=== PATIENT | female | born 1950 | race Caucasian/White ===

== ENCOUNTER 2018-03-20 09:36 | Day surgery (SDC) | payer OTHER, SELFPAY ==
--- NOTE | 2018-03-20 | PATH_ITS ---
[facility] Accession Number: [id number] . 01 Material submitted: . PART A: POLYP AT 55 PART B: POLYP AT 50 PART C: POLYP AT 40 . 02 Diagnosis: A. Colon, Polyp at 55 cm, Biopsy: Tubular adenoma. . B. Colon, Polyp at 50 cm, Biopsy: Tubular adenoma. . C. Colon, Polyp at 40 cm, Biopsy: Tubular adenoma. MRV/03/21/2018 . 02 Electronically signed: . Barbara Ingram MD, Pathologist NPI- [id number] . 01 Gross description: . Received three formalin-filled containers, each labeled with the patient's name: . A. In a container labeled polyp at 55, the specimen consists of a 0.3 cm portion of tissue, entirely submitted in cassette A. B. In a container labeled polyp at 50, the specimen consists of a 0.3 cm portion of tissue, entirely submitted in cassette B. C. In a container labeled polyp at 40, the specimen consists of two 0.3-0.5 cm portions of tissue, entirely submitted in cassette C. ([id number]) /FRR . 02 Pathologist provided ICD-10: D12.6 . 02 CPT . 523513, [id number], [id number] Performed at: 01 [facility] [address] [facility], [place], [place] [id number] MD Romeo Ferrer MD Phone: [phone] Performed at: 02 [facility] [address] [place], [place] [id number] MD David Barrera MD Phone: [phone]
--- NOTE | 2018-03-20 07:47 | SUR.PREOP ---
CHARTED ON WRONG PT,
[2018-03-20 10:20] VITALS: BP 122/67; PULSE 63; RESP 18; TEMP 36.7; O2SAT 100
[2018-03-20] MEDS: SODIUM CHLORIDE 0.9% 1,000 ML 200 ML IV (10:20)
--- NOTE | 2018-03-20 11:46 | PM.HP.1 ---
History of Present Illness Date Patient Seen: 03/20/18 Time Patient Seen: 11:46 Chief complaint: [id number] Narrative: Domonique is a generally healthy 67-year-old lady with a personal history of rectal cancer. Additionally she has had multiple polyps in the past. Her last colonoscopy was 3 years ago and at that time she had 6 polyps removed. She reports that she is feeling well and denies any new symptoms or problems related to the function of her GI tract. Patient History Surgical History History of breast augmentation Status post tubal ligation Family & Social History Family History: Reviewed 03/20/18 by Sophie Tracey MD Social History: household members none Meds Home Medications Medication Instructions Recorded Confirmed Type Fexofenadine Hydrochloride 60 mg PO PRN #0 03/16/11 03/20/18 History (#MARY KATE) lorazepam 0 mg PO BIDP PRN #45 tab 06/18/16 03/20/18 Rx metoprolol tartrate 25 mg PO Q DAY #90 tab 06/27/17 03/20/18 Rx levothyroxine [Synthroid] 88 mcg PO QAM #90 tab 08/07/17 03/20/18 Rx Allergies Allergy/AdvReac Type Severity Reaction Status Date / Time Sulfa (Sulfonamide Allergy Mild RASH Unverified 03/20/18 10:29 Antibiotics) [SULFA (SULFONAMIDE ANTIBIOTICS)] Review of Systems Review of Systems All systems reviewed & are unremarkable except as noted in HPI and below Exam Vital Signs (past 8 hours): - 03/20/18 10:20 Temperature 98.1 F Pulse Rate 63 Respiratory Rate 18 Blood Pressure 122/67 H Pulse Oximetry 100 Oxygen Delivery Method Room Air Narrative Exam Narrative: Very pleasant well-nourished well-developed lady. She is thin and in no distress HEENT: Normocephalic and atraumatic, pupils equal round reactive to light accommodation with anicteric sclera Lungs: Clear to auscultation bilaterally Heart: Regular rate and rhythm Abdomen: Soft, nontender, active bowel sounds Extremities: Warm and well perfused Assessment & Plan Plan: Assessment/Plan Narrative: Very pleasant 67-year-old lady with personal history of rectal cancer and multiple polyps in the past. We discussed the risks and benefits of the procedure the patient expressed a desire to complete it today.
--- NOTE | 2018-03-20 12:20 | PM.OP.1 ---
Operative Date/Time/Diagnoses Date of procedure: 03/20/18 Time of procedure: 12:21 Pre-op diagnosis: Personal history of rectal cancer and multiple polyps Post-op diagnosis: same Procedure & Clinicians Procedure: Colonoscopy to the cecum with polypectomy x3 Same procedure as scheduled: Yes Indications: Last colonoscopy 2014 Surgeon: Sophie Tracey Anesthesia Type: Sedation (Versed 5 mg; fentanyl 50 mcg) Operative Notes Findings: 1. Adequate prep 2. Three 2-3 mm sessile polyps at 55 cm, 50 cm, and 40 cm. All removed with cold forceps and submitted for pathology 3. Otherwise normal mucosa with minimal diverticulosis 4. Very mild perianal irritation without gross proctitis. 5. Anastomosis identified and without evidence of recurrence Closure Type: not applicable Specimen(s): other (Three 2-3 mm sessile polyps) Estimated Blood Loss (mL): 1 Procedure in detail: After obtaining informed consent, the patient was brought to the GI suite and placed in the left lateral decubitus position on the examination table. After placement of appropriate monitors, the patient was given incremental doses of Versed and Fentanyl until an appropriate level of sedation was achieved. A time out was held per SCOAP protocol. A digital rectal examination was performed and did not reveal any masses or obstructing lesions. The colonoscope was gently passed into the patient's anus and the entire colon navigated to the level of the cecum with minimal difficulty. Once in the cecum, the scope was withdrawn being sure to go before and beyond all mucosal folds and prominences and get an excellent examination. The findings are noted above. At the level of the rectal vault, the scope was retroflexed and the internal anal canal was examined. The scope was straightened and air aspirated from the colon. The instrument was removed from the patient's body and the procedure was concluded. The patient was allowed to awaken from sedation without difficulty and taken to the post-anesthesia care unit in good condition. Total sedation time 22 min Total withdrawal time 14 min 45 sec at Complications: none Condition: stable Disposition: PACU Plan for aftercare: 1. Discharge to home 2. Plan for next colonoscopy in 3 years or as clinically indicated
[2018-03-20 12:27] VITALS: BP 97/55; PULSE 60; RESP 16; TEMP 36.9; O2SAT 96
[2018-03-20] MEDS: fentaNYL 250 MCG/5 ML INJ IV (12:28)
[2018-03-20] MEDS: MIDAZOLAM 5 MG/5 ML VIAL IV (12:29)
[2018-03-20 12:32] VITALS: BP 93/53; PULSE 60; RESP 18; O2SAT 95
[2018-03-20 12:37] VITALS: BP 89/51; PULSE 60; RESP 16; O2SAT 99
[2018-03-20 12:43] VITALS: BP 97/61; PULSE 60; RESP 16; TEMP 37.1; O2SAT 98
[2018-03-20 13:32] VITALS: BP 105/56; PULSE 69; RESP 16; TEMP 36.1; O2SAT 100
== END 2018-03-20 13:40 | disposition home or self-care (01) ==
PROVIDERS: Family Provider Family Medicine; PCP Family Medicine; Visit Provider Surgery
PROC: 0DJD8ZZ Inspection of Lower Intestinal Tract, Via Natural or Artificial Opening Endoscopic (ICD-10-PCS; CPT 45378; principal; 2018-03-20 10:45)
DX: Z85.048 Personal history of other malignant neoplasm of rectum, rectosigmoid junction, and anus (principal); Z86.010 Personal history of colon polyps; D12.6 Benign neoplasm of colon, unspecified
CPT/HCPCS: 45380; 99152; J2250; J3010

== ENCOUNTER → 2018-10-22 09:47 | Outpatient (CLI) | payer OTHER, SELFPAY ==
[2018-10-22 10:11] LABS: Add Manual Diff / Slide Review NO; Basophils Absolute Auto 100 /uL (0-100); Basophils Percent Auto 0.8 % (0-2); Eosinophils Absolute Auto 100 /uL (0-450); Eosinophils Percent Auto 0.9 % (2-4); Hematocrit 43.8 % (36-46); Hemoglobin 14.5 g/dL (12.0-16.0); Lymphocytes Absolute Auto 1700 /uL (1100-4500); Mean Corpuscular Hemoglobin 32.8 PG (26-34); Mean Corpuscular Volume 99.4 fL (80-100); Monocytes Absolute Auto 500 /uL (0-900); Monocytes Percent Auto 7.3 % (3-14); Neutrophils Absolute Auto 5000 /uL (1500-7000); Platelet Count 328 X10^3/uL (150-400); Red Blood Cell Count 4.41 X10^6/uL (4.0-5.2); Red Cell Distribution Width 14.6 % (11.6-14.8); White Blood Cell Count 7.3 X10^3/uL (4.5-11.0)
[2018-10-22 10:22] LABS: Alanine Aminotransferase 47 IU/L (9-52); Albumin 4.8 g/dL (3.5-5.0); Albumin Globulin Ratio 1.5 (1.0-2.8); Alkaline Phosphatase 79 U/L (38-126); Aspartate Aminotransferase 48 IU/L (14-36); BUN Creatinine Ratio 22.9 (6-22); Bilirubin Total 0.6 mg/dL (0.2-1.3); Blood Urea Nitrogen 16 mg/dL (7-17); Calcium 10.4 mg/dL (8.4-10.2); Carbon Dioxide 29 mmol/L (22-32); Chloride 99 mmol/L (98-107); Cholesterol 250 mg/dL (140-199); Estimated Glomerular Filt Rate > 60.0 mL/min (>60); Globulin 3.3 g/dL (1.7-4.1); Glucose 112 mg/dL (80-110); HDL Cholesterol 89 mg/dL (40-60); HEMOLYSIS < 15 (0-50); LDL Cholesterol Calculated 137 mg/dL (<100); Potassium 4.5 mmol/L (3.4-5.1); Sodium 139 mmol/L (137-145); Total Protein 8.1 g/dL (6.3-8.2); Triglycerides 119 mg/dL (35-150)
[2018-10-22 10:51] LABS: Vitamin D 25 Hydroxy (D3) 37.3 ng/mL (30.0-100.0)
[2018-10-22 11:09] LABS: Thyroid Stimulating Hormone 0.82 uIU/mL (0.47-4.68)
== END ==
PROVIDERS: PCP Family Medicine; Visit Provider Family Medicine
DX: E03.9 Hypothyroidism, unspecified (principal); E78.5 Hyperlipidemia, unspecified; I10 Essential (primary) hypertension; M81.0 Age-related osteoporosis without current pathological fracture; R73.09 Other abnormal glucose
CPT/HCPCS: 36415; 80053; 80061; 82306; 84443; 85025

== ENCOUNTER → 2018-12-05 09:28 | Outpatient (CLI) | payer OTHER, SELFPAY | PROVIDERS: PCP Family Medicine; Visit Provider Family Medicine | DX: M81.0 Age-related osteoporosis without current pathological fracture (principal); Z78.0 Asymptomatic menopausal state; F17.200 Nicotine dependence, unspecified, uncomplicated; Z82.62 Family history of osteoporosis | CPT/HCPCS: 77080 ==

== ENCOUNTER → 2019-08-17 08:57 | Outpatient (CLI) | payer OTHER, SELFPAY ==
[2019-08-17 10:30] LABS: Add Manual Diff / Slide Review NO; Basophils Absolute Auto 0 /uL (0-100); Basophils Percent Auto 0.3 % (0-2); Eosinophils Absolute Auto 100 /uL (0-450); Eosinophils Percent Auto 0.9 % (2-4); Hematocrit 43.4 % (36-46); Hemoglobin 14.7 g/dL (12.0-16.0); Lymphocytes Absolute Auto 1100 /uL (1100-4500); Lymphocytes Percent Auto 17.1 % (25-40); Mean Corpuscular Hemoglobin 33.9 PG (26-34); Mean Corpuscular Volume 99.7 fL (80-100); Monocytes Absolute Auto 600 /uL (0-900); Monocytes Percent Auto 8.5 % (3-14); Neutrophils Absolute Auto 4900 /uL (1500-7000); Neutrophils Percent Auto 73.2 % (50-75); Platelet Count 304 X10^3/uL (150-400); Red Blood Cell Count 4.35 X10^6/uL (4.0-5.2); Red Cell Distribution Width 14.3 % (11.6-14.8); White Blood Cell Count 6.7 X10^3/uL (4.5-11.0)
[2019-08-17 10:49] LABS: BUN Creatinine Ratio 16.7 (6-22); Blood Urea Nitrogen 10 mg/dL (7-17); Calcium 10.3 mg/dL (8.4-10.2); Carbon Dioxide 30 mmol/L (22-32); Chloride 99 mmol/L (98-107); Cholesterol 202 mg/dL (140-199); Estimated Glomerular Filt Rate > 60.0 mL/min (>60); Glucose 108 mg/dL (80-110); HDL Cholesterol 67 mg/dL (40-60); HEMOLYSIS < 15 (0-50); LDL Cholesterol Calculated 119 mg/dL (<100); Potassium 4.2 mmol/L (3.4-5.1); Sodium 138 mmol/L (137-145); Triglycerides 79 mg/dL (35-150)
[2019-08-17 11:08] LABS: Thyroid Stimulating Hormone 0.88 uIU/mL (0.47-4.68)
== END ==
PROVIDERS: PCP Family Medicine; Visit Provider Family Medicine
DX: I10 Essential (primary) hypertension (principal)
CPT/HCPCS: 36415; 80048; 80061; 84443; 85025

== ENCOUNTER → 2020-04-18 09:50 | Outpatient (CLI) | payer MEDICARE, SELFPAY ==
[2020-04-18 11:20] LABS: Cholesterol 230 mg/dL (140-199); HDL Cholesterol 77 mg/dL (40-60); LDL Cholesterol Calculated 124 mg/dL (<100); Triglycerides 144 mg/dL (35-150)
[2020-04-18 11:49] LABS: Thyroid Stimulating Hormone 0.747 uIU/mL (0.47-4.68)
== END ==
PROVIDERS: PCP Family Medicine; Referring Provider Family Medicine; Visit Provider Family Medicine
DX: I10 Essential (primary) hypertension (principal); Z13.220 Encounter for screening for lipoid disorders; Z13.29 Encounter for screening for other suspected endocrine disorder; Z13.6 Encounter for screening for cardiovascular disorders
CPT/HCPCS: 36415; 80061; 84443

== ENCOUNTER → 2020-09-01 10:14 | Outpatient (CLI) | payer MEDICARE, SELFPAY ==
[2020-09-01 12:35] LABS: Cholesterol 201 mg/dL (140-199); HDL Cholesterol 65 mg/dL (40-60); LDL Cholesterol Calculated 113 mg/dL (<100); Triglycerides 114 mg/dL (35-150)
== END ==
PROVIDERS: PCP Family Medicine; Referring Provider Family Medicine; Visit Provider Family Medicine
DX: E78.2 Mixed hyperlipidemia (principal)
CPT/HCPCS: 36415; 80061

== ENCOUNTER → 2020-09-09 14:03 | Outpatient (CLI) | payer MEDICARE, SELFPAY ==
--- NOTE | 2020-09-09 14:07 | DI.RAD.S_ITS ---
PROCEDURE: XR SACRUM COCCYX MIN 2V INDICATIONS: lower back pain TECHNIQUE: 3 views of the sacrum and coccyx acquired. COMPARISON: [facility], MR, PELVIS WITHOUT CONTRAST, 12/04/2017, 14:15. [facility], CR, XR LUMBAR SPINE 2-3V, 09/09/2020, 14:12. [facility], CR, SACRUM-COCCYX MIN 2 VIEWS, 11/20/2017, 11:48. FINDINGS: Bones: No fractures or dislocations. No new suspicious bony lesions. The pattern of patchy sclerotic change along the sacroiliac joints bilaterally appears stable from 11/20/17 plain films and subsequent MR scanning through the pelvis. Soft tissues: Visualized bowel gas pattern is normal. No suspicious soft tissue densities. IMPRESSION: Itqk-vf-hlrxccpi patchy bilateral sclerotic change along the sacroiliac joints bilaterally, greater along the sacral margins than the iliac bone margins. This pattern has been previously present without change management specialist time from at least 11/20/17. No trauma found. Dictated by: Adrian Downey M.D. on 09/09/2020 at 15:45 Approved by: Adrian Downey M.D. on 09/09/2020 at 15:51
--- NOTE | 2020-09-09 14:07 | DI.RAD.S_ITS ---
PROCEDURE: XR LUMBAR SPINE 2-3V INDICATIONS: lower back pain TECHNIQUE: 3 views of the lumbar spine were acquired. COMPARISON: [facility], , L-SPINE 2-3 VIEWS, 11/20/2017, 11:47. FINDINGS: Bones: 5 cxd-kot-xxeinga vertebrae are present. There is normal bony alignment. No vertebral body compression fractures. No suspicious bony lesions. As previously noted patchy sclerotic regions along the border of the sacroiliac joints, symmetric bilaterally, are again seen and stable from at least 11/20/17. No new areas of sclerosis have developed. A Schmorl's node superior middle 3rd of the L4 vertebral body is stable over time. Soft tissues: Overlying bowel gas pattern is normal. No suspicious soft tissue calcifications. 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 Mild chronic sclerotic change along the sacroiliac joints consistent with quiescent sacroiliitis. Dictated by: Adrian Downey M.D. on 09/09/2020 at 15:51 Approved by: Adrian Downey M.D. on 09/09/2020 at 15:53
== END ==
PROVIDERS: PCP Family Medicine; Referring Provider Registered Nurse; Visit Provider Registered Nurse
DX: M54.5 Low back pain (principal)
CPT/HCPCS: 72100; 72220

== ENCOUNTER → 2020-11-17 15:34 | Outpatient (CLI) | payer MEDICARE, SELFPAY ==
[2020-11-17 16:06] LABS: Add Manual Diff / Slide Review NO; Basophils Absolute Auto 100 /uL (0-100); Basophils Percent Auto 0.8 % (0-2); Eosinophils Absolute Auto 100 /uL (0-450); Eosinophils Percent Auto 1.3 % (2-4); Hematocrit 39.5 % (36-46); Hemoglobin 13.5 g/dL (12.0-16.0); Lymphocytes Absolute Auto 1600 /uL (1100-4500); Lymphocytes Percent Auto 20.1 % (25-40); Mean Corpuscular HGB Conc 34.2 % (30-36); Mean Corpuscular Hemoglobin 33.8 PG (26-34); Mean Corpuscular Volume 98.6 fL (80-100); Monocytes Absolute Auto 500 /uL (0-900); Monocytes Percent Auto 6.7 % (3-14); Neutrophils Absolute Auto 5700 /uL (1500-7000); Neutrophils Percent Auto 71.1 % (50-75); Platelet Count 240 X10^3/uL (150-400); Red Blood Cell Count 4.01 X10^6/uL (4.0-5.2); Red Cell Distribution Width 14.3 % (11.6-14.8); White Blood Cell Count 8.1 X10^3/uL (4.5-11.0)
[2020-11-17 16:39] LABS: Alanine Aminotransferase 61 IU/L (<35); Albumin Globulin Ratio 1.6 (1.0-2.8); Alkaline Phosphatase 82 U/L (38-126); Aspartate Aminotransferase 74 IU/L (14-36); BUN Creatinine Ratio 43.9 (6-22); Bilirubin Total 0.3 mg/dL (0.2-1.3); Blood Urea Nitrogen 25 mg/dL (7-17); C-Reactive Protein Quant < 0.5 mg/dL (<1.0); Calcium 10.4 mg/dL (8.4-10.2); Carbon Dioxide 31 mmol/L (22-32); Chloride 102 mmol/L (98-107); Estimated Glomerular Filt Rate > 60.0 mL/min (>60); Globulin 2.5 g/dL (1.7-4.1); Glucose 92 mg/dL (80-110); HEMOLYSIS < 15 (0-50); Potassium 4.1 mmol/L (3.4-5.1); Sodium 138 mmol/L (137-145); Total Protein 6.5 g/dL (6.3-8.2)
[2020-11-17 16:44] LABS: NT-proBNP (BNP-Adult 18+) 382 pg/mL (<125)
[2020-11-17 17:08] LABS: Creatinine Urine Random 126.9 mg/dL
[2020-11-17 17:11] LABS: Microalbumi Creatinin Ratio Ur 29.1 ug/mg CR (<30); Microalbumin Urine Random 3.7 mg/dL (0-1.6)
[2020-11-17 19:40] LABS: Erythrocyte Sedimentation Rate 5 MM/HR (0-20)
== END ==
PROVIDERS: PCP Family Medicine; Referring Provider Family Medicine; Visit Provider Family Medicine
DX: E03.9 Hypothyroidism, unspecified (principal); R60.0 Localized edema; E78.2 Mixed hyperlipidemia; F32.9 Major depressive disorder, single episode, unspecified; F41.9 Anxiety disorder, unspecified; I10 Essential (primary) hypertension
CPT/HCPCS: 36415; 80053; 82043; 82570; 83880; 85025; 85651; 86140

== ENCOUNTER → 2020-12-13 10:41 | Outpatient (CLI) | payer MEDICARE, SELFPAY ==
--- NOTE | 2020-12-13 10:42 | DI.CT.S_ITS ---
PROCEDURE: CT CHEST WO CON INDICATIONS: fatigue, 50+ pack year history TECHNIQUE: Noncontrast 5 mm thick sections acquired from the pulmonary apices to the posterior costophrenic angles. 1 mm lung window, 5 mm thick coronal and sagittal and 7 mm axial MIP reformats were then acquired. For radiation dose reduction, the following was used: automated exposure control, adjustment of mA and/or kV according to patient size. COMPARISON: None. FINDINGS: Image quality: Excellent. Lungs and pleura: Centrilobular emphysema is present best seen at the apices. This is consistent with the stated clinical history of extensive smoking. Several areas of current concern are present. Two subsolid abnormalities are noted at the lung bases, the larger on the right and the smaller on the left. These are seen each on series 3, image 249 and comprised of a subsolid area of airspace at infiltration measuring up to 1.6 cm laterally on the right and 5 mm posteriorly on the left. A solid component is not associated. More superiorly within the anterolateral left upper lobe there is a combination of cystic and subsolid airspace disease, overall measuring up to 2.3 cm seen on series 3, image 121. No pleural effusions or pneumothorax. Central and peripheral airways are patent and normal in caliber. Mediastinum: Heart size is normal. No pericardial effusion. No mediastinal adenopathy by size criteria. Thoracic aorta and central pulmonary arteries are normal in size. Esophagus is normal in caliber. No hiatal hernia. Bones and chest wall: No suspicious bony lesions. No vertebral body compression fractures. No axillary or supraclavicular adenopathy by size criteria. Thyroid gland is not well seen. Abdomen: Visualized upper abdominal solid organs and bowel loops appear normal in the absence of contrast. IMPRESSION: 3 separate areas of potentially malignant airspace disease is found in the setting of longstanding smoking history and centrilobular emphysema visible at the lung apices. These are located at the anterolateral left upper lobe near the pleural surface and at the lower lobes bilaterally posteriorly larger on the right than the left where subsolid airspace disease can be seen. The nodule at the anterolateral left upper lobe is considered a mix of subsolid and solid components, and could simply represent sequela of prior infection and airspace disease remaining from scarring in this area. However, given a high risk status of this patient from longstanding smoking a follow-up CT scanning utilizing low-dose noncontrast technique in 3-6 months is recommended to assess for stability over time. Sequential follow-up by CT scanning is considered likely required for this patient given the 3 separate abnormalities and longstanding smoking history. Dictated by: Adrian Downey M.D. on 12/13/2020 at 13:52 Approved by: Adrian Downey M.D. on 12/13/2020 at 14:22
== END ==
PROVIDERS: PCP Family Medicine; Referring Provider Family Medicine; Visit Provider Family Medicine
DX: R05 Cough (principal); R53.83 Other fatigue; R63.4 Abnormal weight loss; Z72.0 Tobacco use
CPT/HCPCS: 71250

== ENCOUNTER → 2021-01-02 14:56 | Outpatient (CLI) | payer MEDICARE, SELFPAY ==
--- NOTE | 2021-01-02 14:57 | DI.ECHO.S_ITS ---
[place] [facility]---------+ [facility] +---------+ : : [address] : : : : [id number] : : : : Phone: [phone] Echocardiogram Report + + :Name: RENEE PRADO Study Date: 01/02/2021 Height: 62 in : :[facility] ReadingLocation: Weight: 98 lb : : Gender: Female BSA: 1.4 m2 : :: 1950 Age: 70 yrs BP: 108/53 mmHg: :Reason For Study: EDEMA : :Ordering Physician: JAROD, : :MIGUEL Performed By: Jeffry Carcamo : :Referring: MIGUEL OLIVERA : + + Interpretation Summary The left ventricle is normal in size. The ejection fraction is estimated to be 60-65%. The right ventricle is normal in size and function. There is moderate tricuspid regurgitation. The right ventricular systolic pressure is estimated to be at least 28 mmHg based on an estimated right atrial pressure of 3 mm Hg. Procedure: A two-dimensional transthoracic echocardiogram with color flow and Doppler was performed. The study quality was technically adequate. There is no prior echocardiogram noted for this patient. The patient was in sinus bradycardia with heart rates between 47-58 bpm during the exam. Left Ventricle: The left ventricle is normal in size. Proximal septal thickening is noted. There is no thrombus. Left ventricular systolic function is normal. The ejection fraction is estimated to be 60-65%. There are no focal wall motion abnormalities. MV E/A: 1.3 Med Peak E' Jorge: 7.5 cm/sec E/E' med: 13.7. Right Ventricle: The right ventricle is normal in size and function. Atria: There is mild biatrial enlargement. There is no Doppler evidence for an interatrial shunt. Mitral Valve: The mitral valve leaflets appear mildly thickened, but open well. The mitral valve chordae are thickened and/or calcified. There is trace mitral regurgitation. Aortic Valve: There is mild aortic valve sclerosis. There is discrete nodular thickening of the non- coronary cusp. There is mildly reduced leaflet mobility. There is no hemodynamically significant valvular aortic stenosis. No aortic regurgitation is present. Tricuspid Valve: The tricuspid valve is normal. There is moderate tricuspid regurgitation. The right ventricular systolic pressure is estimated to be at least 28 mmHg based on an estimated right atrial pressure of 3 mm Hg. Pulmonic Valve: The pulmonic valve is not well seen, but is grossly normal. There is no pulmonic valvular regurgitation. Great Vessels: The aortic root is normal size. The ascending aorta could not be visualized. The IVC is of normal diameter and collapses greater than 50% with a sniff. This suggests a low right atrial pressure of 3 mm Hg. Pericardium/ Pleura There is no pericardial effusion. There is no pleural effusion. MMode/2D Measurements & Calculations LVIDd: 4.9 cm LVOT diam: 2.0 cm LVIDs: 3.0 cm Ao root diam: 2.8 cm FS: 38.2 % IVSd: 0.71 cm LVPWd: 0.81 cm LV lemons. diameter/BSA (cm/m^2): 3.5 LV sys. diameter/BSA (cm/m^2): 2.1 LA A4 area: 15.4 cm2 RA area: 16.0 cm2 LA length (vol): 4.9 cm IVC diam: 1.8 cm RVD1 (basal): 3.5 cm TAPSE: 2.6 cm Doppler Measurements & Calculations Ao V2 max: 135.1 cm/sec LVOT Max Jorge: 125.7 cm/sec Ao V2 mean: 86.6 cm/sec LV V1 max P.3 mmHg Ao max P.3 mmHg LV V1 VTI: 26.7 cm Ao mean P.5 mmHg JOEY(I,D): 2.9 cm2 Ao V2 VTI: 29.4 cm JOEY(V,D): 3.0 cm2 sev ratio: 0.91 JOEY indexed to BSA (cm^2/m^2): 2.1 MV E max jorge: 102.7 cm/sec TR max jorge: 249.4 cm/sec MV A max jorge: 77.0 cm/sec TR max P.9 mmHg MV E/A: 1.3 PA V2 max: 99.8 cm/sec Med Peak E' Jorge: 7.5 cm/sec PA V2 mean: 69.7 cm/sec E/E' med: 13.7 PA mean P.2 mmHg Lat Peak E' Jorge: 10.1 cm/sec PA pr(Accel): 18.8 mmHg E/E' lat: 10.2 E/e' average: 12.0 MV dec time: 0.22 sec SV(LVOT): 85.8 ml Reading Physician:04:39 PM
== END ==
PROVIDERS: PCP Family Medicine; Referring Provider Family Medicine; Visit Provider Family Medicine
DX: R60.0 Localized edema (principal); I07.1 Rheumatic tricuspid insufficiency; I87.8 Other specified disorders of veins; R79.89 Other specified abnormal findings of blood chemistry
CPT/HCPCS: 93306

== ENCOUNTER → 2021-02-24 10:56 | Outpatient (CLI) | payer MEDICARE, SELFPAY ==
--- NOTE | 2021-02-24 10:58 | DI.CT.S_ITS ---
PROCEDURE: CT CHEST WO CON INDICATIONS: Suggestion malignant airspace disease TECHNIQUE: Noncontrast 2.0-2.5 mm thick sections acquired from the pulmonary apices to the posterior costophrenic angles. 7 mm thick axial MIP and 5 mm coronal and sagittal reformats were then acquired. A low radiation dose technique was utilized. COMPARISON: [facility], CT, CT CHEST WO CON, 12/13/2020, 10:49. FINDINGS: Image quality: Diagnostic, given the low radiation dose technique. Lungs and pleura: Mild centrilobular emphysema. There is a 2.3 x 2.1 cm sub solid airspace opacity in the left upper lobe with associated cavitary appearance. Compared to the last exam, it is unchanged. A 0.5 ground-glass nodule in the left lower lobe (series 3, image 234) is unchanged. A 0.9 x 1.4 cm ground-glass nodule is seen in the right lower lobe (series 3 image 249), also stable. A 0.5 cm lobulated solid nodule is identified in the right lower lobe (series 3, image 179), which appears slightly enlarged (previously 0.4 cm). Mediastinum: Heart size is normal. Wftn-uo-wauxxddg coronary artery and aortic calcification. No pericardial effusion. No mediastinal adenopathy by size criteria. Thoracic aorta and central pulmonary arteries are normal in size. Esophagus is normal in caliber. No hiatal hernia. Bones and chest wall: No suspicious bony lesions. No vertebral body compression fractures. No axillary or supraclavicular adenopathy by size criteria. Thyroid gland is unremarkable. There is bilateral breast implants. Abdomen: Visualized upper abdomen solid organs and bowel loops appear normal in the absence of contrast. A bilobed hepatic cyst is noted in the left hepatic lobe. IMPRESSION: 1. The subsolid left upper lobe nodule and 2 ground-glass nodules, one in the right lower lobe and one in the left lower lobe, are stable since the last exam. 2. There is a 0.5 cm solid nodule in the right lower lobe, which is slightly enlarged (previously 4 mm). This nodule has suspicious morphology. A short-term follow-up CT in 3 months is recommended. Fleischner Society criteria for SOLID lung nodule followup. Nodule size (mm)Low-risk patientHigh-risk patient<6 (single or multiple)No routine followup.Optional CT at 12 months. 6-8 (single or multiple)CT at 6-12 months, then optional CT at 18-24 mo.CT at 6-12 months, then CT at 18-24 months. >8 (single)CT at 3 months, PET-CT, or biopsy. Same as for low-risk pts. >8 (multiple)CT at 3-6 months, then optional CT at 18-24 mo.CT at 3-6 months, then CT at 18-24 months. Fleischner Society criteria for SUB-SOLID lung nodule followup. Solitary pure ground-glass nodules<6 mm (ground glass or part solid)No followup needed. 6 mm or larger (ground glass)CT at 6-12 months to confirm persistence, then CT every 2 years until 5 years.6 mm or larger (part solid)CT at 3-6 months to confirm persistence, then annual CT until 5 years if unchanged and solid component remains <6 mm. Multiple sub-solid nodules<6 mmCT at 3-6 months, then CT consider at 2 & 4 years for high risk patients. [address] at 3-6 months. Subsequent management based on most suspicious lesions. Recommendations do not apply to lung cancer screening, patients with immunosuppression, or patients with known primary cancer. Dictated by: Nkechi Ballesteros M.D. on 02/24/2021 at 15:42 Approved by: Nkechi Ballesteros M.D. on 02/24/2021 at 15:56
== END ==
PROVIDERS: PCP Family Medicine; Referring Provider Family Medicine; Visit Provider Family Medicine
DX: R91.8 Other nonspecific abnormal finding of lung field (principal); J43.2 Centrilobular emphysema; I70.0 Atherosclerosis of aorta; I25.10 Atherosclerotic heart disease of native coronary artery without angina pectoris
CPT/HCPCS: 71250

== ENCOUNTER → 2021-03-03 11:22 | Outpatient (CLI) | payer MEDICARE, SELFPAY ==
--- NOTE | 2021-03-03 11:24 | DI.MRI.S_ITS ---
PROCEDURE: MR LUMBAR SPINE WO CON INDICATIONS: back pain with radiculopathy. TECHNIQUE: Noncontrast sagittal T1 spin echo and T2 fast echo, sagittal STIR, axial T1 and T2 fast spin echo through the lumbar spine. In cases with scoliosis, additional coronal T2 fast spin echo may be performed. COMPARISON: [facility], CR, XR LUMBAR SPINE 2-3V, 09/09/2020, 14:12. [facility], CR, XR SACRUM COCCYX MIN 2V, 09/09/2020, 14:12. [facility], MR, L-SPINE WITHOUT CONTRAST, 12/04/2017, 13:44. FINDINGS: Image quality: Excellent. Alignment and Curvature: There is normal bony alignment. Bone Marrow: Marrow is of normal overall signal. Since the 2018 MRI examination, there has been a compression deformity of L5, primarily involving the inferior endplate, with 30-40% loss of height anteriorly. A chronic Schmorl's node is seen at the superior endplate of L4. Spinal Cord: Conus medullaris terminates at the L1-L2 level. Visualized cord demonstrates normal signal and size. Paraspinous Soft Tissues: No paravertebral masses. T12-L1: Normal appearance. L1-L2: Normal appearance. L2-L3: Mstw-ub-fqmmglkd loss of disc height and disc signal can be seen. Moderate generalized disc bulge is seen. There is a central disc protrusion. Mild facet joint hypertrophy is seen. There is aczf-gm-qkkvjjlv right-sided and at least moderate left-sided neural foraminal narrowing seen. There is a mild degree of compression seen upon the exiting left L2 nerve root. At least moderate central canal narrowing is seen. When comparison is made with the prior images, these findings are similar. L3-L4: Mild loss of disc height is seen. Loss of disc signal is seen. At least moderate disc bulge is seen, which is eccentric to the right. Mild facet joint hypertrophy is seen. There is at least moderate bilateral neural foraminal narrowing seen. Minimal compression can be seen upon the exiting L3 nerve roots. At least moderate central canal narrowing is seen. Compared to 2018, the degenerative changes at this level are similar. L4-L5: The disc height and disk signal are well-preserved. Moderate disc bulge is seen, with a central disc protrusion. Mild to moderate facet hypertrophy is seen. There is moderate to severe bilateral neural foraminal narrowing seen, left worse than right. There is a degree of compression seen upon the exiting nerve roots. Mild central canal narrowing is seen. These imaging findings have progressed compared to the prior study. L5-S1: At least moderate loss of disc height and disc signal can be seen posteriorly. Reactive marrow endplate changes are seen which are hypointense on T1-weighted imaging and hyperintense on T2 weighted imaging, which is most consistent with edema (Modic type I changes). Mild to moderate disc bulge is seen, with a central disc protrusion. Moderate facet hypertrophy is seen, right worse than left. There is at least moderate right-sided and lrfi-qv-kjgmziqm left-sided facet hypertrophy seen at this level. Moderate to severe bilateral neural foraminal narrowing can be seen, left worse than right. Mild central canal narrowing is seen. These imaging findings have progressed compared to the prior study. IMPRESSION: There is a subacute compression deformity of L5 anteriorly. New endplate edema is seen at L5-S1. Degenerative changes are seen, which have overall progressed compared to 2018, particularly at L5-S1. Dictated by: Raj Landers M.D. on 03/03/2021 at 12:32 Approved by: Raj Landers M.D. on 03/03/2021 at 12:37
== END ==
PROVIDERS: PCP Family Medicine; Referring Provider Family Medicine; Visit Provider Family Medicine
DX: M54.5 Low back pain (principal); M79.605 Pain in left leg; M47.27 Other spondylosis with radiculopathy, lumbosacral region; M47.26 Other spondylosis with radiculopathy, lumbar region
CPT/HCPCS: 72148

== ENCOUNTER → 2021-03-17 12:23 | Outpatient (CLI) | payer MEDICARE, SELFPAY ==
--- NOTE | 2021-03-17 12:27 | DI.RAD.S_ITS ---
PROCEDURE: XR ANKLE LT MIN 3V INDICATIONS: left ankle pain TECHNIQUE: 3 views of the ankle were acquired. COMPARISON: None. FINDINGS: Bones: No fractures or dislocations. Ankle mortise is normally aligned. No suspicious bony lesions. Soft tissues: No tibiotalar joint effusion. Achilles tendon appears normal. IMPRESSION: No acute fracture. No osseous lesion. If clinical suspicion and/orsymptoms persist, further assessment with repeat plainfilms, or advanced imaging (e.g., CT, MRI, or bone scan) may be helpful for further assessment. Dictated by: Arnie Lorenzo [facility] Interpreted: Cash Walsh MD on 03/17/2021 at 13:30 Transcribed by: CHRIS on 03/17/2021 at 13:31 Approved by: Cash Walsh M.D. on 03/17/2021 at 16:33
== END ==
PROVIDERS: PCP Family Medicine; Referring Provider Family Medicine; Visit Provider Family Medicine
DX: M25.572 Pain in left ankle and joints of left foot (principal)
CPT/HCPCS: 73610

== ENCOUNTER → 2021-04-03 16:48 | Outpatient (CLI) | payer MEDICARE, SELFPAY ==
[2021-04-03 17:30] LABS: Add Manual Diff / Slide Review NO; Basophils Absolute Auto 100 /uL (0-100); Basophils Percent Auto 1.3 % (0-2); Eosinophils Absolute Auto 200 /uL (0-450); Eosinophils Percent Auto 3.4 % (2-4); Hematocrit 41.1 % (36-46); Hemoglobin 13.6 g/dL (12.0-16.0); Lymphocytes Absolute Auto 1600 /uL (1100-4500); Lymphocytes Percent Auto 23.4 % (25-40); Mean Corpuscular HGB Conc 33.1 % (30-36); Mean Corpuscular Hemoglobin 32.9 PG (26-34); Mean Corpuscular Volume 99.2 fL (80-100); Monocytes Absolute Auto 600 /uL (0-900); Monocytes Percent Auto 8.6 % (3-14); Neutrophils Absolute Auto 4400 /uL (1500-7000); Neutrophils Percent Auto 63.3 % (50-75); Platelet Count 280 X10^3/uL (150-400); Red Blood Cell Count 4.15 X10^6/uL (4.0-5.2)
[2021-04-03 17:44] LABS: Alanine Aminotransferase 16 IU/L (<35); Albumin 4.1 g/dL (3.5-5.0); Albumin Globulin Ratio 1.4 (1.0-2.8); Alkaline Phosphatase 94 U/L (38-126); Aspartate Aminotransferase 33 IU/L (14-36); BUN Creatinine Ratio 19.7 (6-22); Bilirubin Total 0.3 mg/dL (0.2-1.3); Blood Urea Nitrogen 13 mg/dL (7-17); Calcium 9.9 mg/dL (8.4-10.2); Carbon Dioxide 31 mmol/L (22-32); Chloride 104 mmol/L (98-107); Estimated Glomerular Filt Rate > 60.0 mL/min (>60); Globulin 2.9 g/dL (1.7-4.1); Glucose 97 mg/dL (80-110); HEMOLYSIS < 15 (0-50); Potassium 4.3 mmol/L (3.4-5.1); Sodium 140 mmol/L (137-145)
[2021-04-03 18:14] LABS: Cancer Antigen 125 6.9 U/mL (0-35); Carcinoembryonic Antigen 9.1 ng/mL (0.1-3.0)
[2021-04-04 10:26] LABS: Calcium 10.1 mg/dL (8.7-10.3); Parathyroid Hormone, Intact 35 pg/mL (15-65)
== END ==
PROVIDERS: PCP Family Medicine; Referring Provider Internal Medicine Hematology & Oncology; Visit Provider Internal Medicine Hematology & Oncology
DX: E83.52 Hypercalcemia (principal); R91.8 Other nonspecific abnormal finding of lung field; Z85.038 Personal history of other malignant neoplasm of large intestine
CPT/HCPCS: 36415; 80053; 82310; 82378; 83970; 85025; 86304

== ENCOUNTER → 2021-04-10 09:56 | Outpatient (CLI) | payer MEDICARE, SELFPAY ==
--- NOTE | 2021-04-10 11:16 | DI.CT.S_ITS ---
PROCEDURE: CT ABDOMEN PELVIS W CON INDICATIONS: colon cancer, abnormal signal on PET in abd. TECHNIQUE: After the administration of oral and IV contrast, axial sections were acquired from the lung bases to the pubic symphysis. Coronal and sagittal reformats were performed. For radiation dose reduction, the following was used: automated exposure control, adjustment of mA and/or kV according to patient size. COMPARISON: [place], [place], [place] PET CT FUSION SKULL 2 THIGH, 03/22/2021, 10:23. FINDINGS: Image quality: Excellent. Lung bases: Stable 5 millimeter ground-glass density nodule in posterior left lower lobe unchanged from prior study series 3, image 11. Ill-defined area of ground-glass opacity in lateral aspect of right lung base is again seen, also unchanged from prior study, series 3, image 11. No pleural effusion or pneumothorax. Heart: No significant findings. ABDOMEN: Liver: Liver is normal in size. Large left hepatic lobe cyst is unchanged in size and appearance. Tiny inferior right hepatic lobe cyst is also unchanged. Gallbladder: Within normal limits. Biliary ducts: Unremarkable. Pancreas: Unremarkable. Spleen: Unremarkable. Adrenal Glands: Unremarkable. Kidneys and Ureters: Unremarkable. Stomach and Bowel: Distal gastric wall thickening is noted which showed mildly increased uptake on previous PET-CT scan and likely represent gastritis. There is no bowel obstruction. Postsurgical changes in rectal sigmoid region are seen with surgical clips. Mild distal sigmoid colon wall thickening and rectal wall thickening is noted and likely represent postsurgical changes. No definite local recurrence is seen. Peritoneum: No abnormal intraperitoneal fluid. No free air. Ventral Wall: No hernia. Abdominal Nodes: No retroperitoneal or mesenteric adenopathy by size criteria. No discrete soft tissue mass is identified in left anterior abdomen at patient's previous PET-CT finding of focal increased uptake. Vessels: Aorta and inferior vena cava are normal in size. PELVIS: Pelvic Organs: Unremarkable. Bladder: Unremarkable. Pelvic Nodes: No enlarged lymph nodes. Miscellaneous: No inguinal hernias are seen. Bones: No suspicious bony lesion. Degenerative disc disease throughout lower thoracic and lumbar spine is seen. Osteoarthritic changes are noted throughout bony pelvis. IMPRESSION: 1. No discrete soft tissue mass or enlarged mesenteric lymph node is seen in left anterior abdomen at previous PET-CT site of increased uptake. No mesenteric or retroperitoneal lymphadenopathy is noted. 2. Postsurgical changes in lower sigmoid colon/rectum with mild wall thickening. No discrete colonic mass is noted. No bowel obstruction. No free fluid or free air. 3. Stable ground-glass density nodules in bilateral lung bases likely represent benign process. 4. Distal gastric wall thickening suggestive of gastritis. Dictated by: Cash Walsh M.D. on 04/10/2021 at 12:08 Approved by: Cash Walsh M.D. on 04/10/2021 at 12:19
== END ==
PROVIDERS: PCP Family Medicine; Referring Provider Internal Medicine Hematology & Oncology; Visit Provider Internal Medicine Hematology & Oncology
DX: R91.8 Other nonspecific abnormal finding of lung field (principal); K76.89 Other specified diseases of liver; Z85.038 Personal history of other malignant neoplasm of large intestine
CPT/HCPCS: 74177; Q9967

== ENCOUNTER → 2021-06-09 09:58 | Outpatient (CLI) | payer MEDICARE, SELFPAY ==
[2021-06-09 12:01] LABS: COVID19 -Nasal RAPID Negative (Negative)
== END ==
PROVIDERS: PCP Family Medicine; Visit Provider Surgery
DX: Z01.812 Encounter for preprocedural laboratory examination (principal); Z20.822 Contact with and (suspected) exposure to COVID-19
CPT/HCPCS: 87635

== ENCOUNTER → 2021-06-09 10:02 | Outpatient (CLI) | payer MEDICARE, SELFPAY ==
[2021-06-09 13:10] LABS: Alanine Aminotransferase 24 IU/L (<35); Albumin 4.3 g/dL (3.5-5.0); Albumin Globulin Ratio 1.5 (1.0-2.8); Alkaline Phosphatase 94 U/L (38-126); Aspartate Aminotransferase 38 IU/L (14-36); BUN Creatinine Ratio 21.8 (6-22); Bilirubin Total 0.3 mg/dL (0.2-1.3); Blood Urea Nitrogen 12 mg/dL (7-17); Calcium 9.9 mg/dL (8.4-10.2); Carbon Dioxide 30 mmol/L (22-32); Chloride 101 mmol/L (98-107); Estimated Glomerular Filt Rate > 60.0 mL/min (>60); Globulin 2.8 g/dL (1.7-4.1); Glucose 61 mg/dL (80-110); HEMOLYSIS < 15 (0-50); Potassium 4.1 mmol/L (3.4-5.1); Sodium 139 mmol/L (137-145); Total Protein 7.1 g/dL (6.3-8.2)
[2021-06-09 13:35] LABS: Thyroid Stimulating Hormone 0.694 uIU/mL (0.47-4.68)
== END ==
PROVIDERS: PCP Family Medicine; Referring Provider Family Medicine; Visit Provider Family Medicine
DX: Z01.812 Encounter for preprocedural laboratory examination (principal); E78.2 Mixed hyperlipidemia; R63.4 Abnormal weight loss; R74.8 Abnormal levels of other serum enzymes; E03.9 Hypothyroidism, unspecified; R91.1 Solitary pulmonary nodule; Z20.822 Contact with and (suspected) exposure to COVID-19
CPT/HCPCS: 36415; 80053; 84443; 87635; C9803

== ENCOUNTER 2021-06-12 06:52 | Day surgery (SDC) | payer MEDICARE, SELFPAY ==
[2021-06-12] VITALS (8 sets, daily range): BP systolic 93–130; BP diastolic 42–77; PULSE 56–85; RESP 10–16; TEMP 36.6–37.2; O2SAT 95–100; BMI 20.1
--- NOTE | 2021-06-12 | PATH_ITS ---
[facility] Accession Number: [id number] . 01 Material submitted: . rectum - RECTUM BIOPSY . 02 Diagnosis: Rectum, Biopsy: Colorectal mucosa with focal mucosal hyperplasia. Negative for dysplasia or malignancy. MRV 06/15/2021 1332 Local . 02 Electronically signed: . Pedrito Ta MD, PhD, Pathologist NPI- [id number] . 01 Gross description: . RECTUM BIOPSY: Received in formalin are 2 fragment(s) of mism, soft tissue measuring 0.5 x 0.3 x 0.3 cm to 0.5 x 0.2 x 0.2 cm submitted entirely in 1 cassette(s) /JOEY 06/13/2021 0358 Local . 02 Pathologist provided ICD-10: R97.0, Z85.038 . 02 CPT . 355313 Performed at: 01 [facility] [address], [place], [place] [id number] MD Romeo Ferrer MD Phone: [phone] Performed at: [address] [facility] [address] [place], [place] [id number] MD Barbara Ingram MD Phone: [phone]
[2021-06-12] MEDS: LACTATED RINGERS 1,000 ML 42 ML IV (07:28)
--- NOTE | 2021-06-12 07:47 | PM.HP.1 ---
History of Present Illness History of Present Illness Date Patient Seen: 06/12/21 Time Patient Seen: 07:48 Chief complaint: SDC Narrative: The patient presents for colorectal sreening. S she has a history of rectal cancer status post colectomy 2001. Most recent colonoscopy 3-4 years ago was normal per her report. She has had some recent diarrhea but otherwise no change change in her bowel habits. Patient History Medical History (Updated 04/03/21 @ 16:45 by Pamela Rollins MD) History of colon cancer Hyperlipidemia Hypertension Hypothyroidism Low back pain radiating to left lower extremity Neuroforaminal stenosis of lumbosacral spine Venous stasis Weight loss Surgical History History of breast augmentation Status post tubal ligation Family & Social History Family History (Updated 04/03/21 @ 16:12 by Pamela Rollins MD) Brother Mental health problem Brother Alcoholism Father Lung cancer Mother Heart disease Sister Age: 67 Ovarian cancer Parkinson's disease Other Cancer Social History: household members none Tobacco & Substance use: Tobacco type cigarettes Smoking Status Current every day smoker alcohol intake current alcohol intake frequency 0-2 drinks per day Substance Use Type does not use Meds Home Medications and Allergies Home Medications Medication Instructions Recorded Confirmed Type Fexofenadine Hydrochloride 60 mg PO PRN #0 03/16/11 06/12/21 History (#MARY KATE) metoprolol tartrate 25 mg tablet 12.5 mg PO BID #90 tab 04/26/21 06/12/21 Rx sertraline 50 mg tablet 75 mg PO DAILY #90 tab 05/24/21 06/12/21 Rx levothyroxine 88 mcg tablet 88 mcg PO QAM #90 tab 05/26/21 06/12/21 Rx (Synthroid) lorazepam 1 mg tablet 1 mg PO BIDP PRN #45 tab 05/29/21 06/12/21 Rx Allergies Allergy/AdvReac Type Severity Reaction Status Date / Time Sulfa (Sulfonamide Allergy Mild RASH Verified 06/12/21 07:04 Antibiotics) [SULFA (SULFONAMIDE ANTIBIOTICS)] Exam Vital Signs (past 8 hours): - 06/12/21 07:11 Temperature 98.4 F Pulse Rate 85 Respiratory Rate 16 Blood Pressure 130/77 Pulse Oximetry 100 Oxygen Delivery Method Room Air Narrative Exam Narrative: Constitutional-She is oriented to person, place and time. No apparent distress Cardiovascular- regular rate, no peripheral edema Pulmonary-unlabored respiratory effort, no audible wheezing Abdominal-soft, non-tender, non-distended Musculoskeletal-no cyanosis or clubbing Neurological-nonfocal, normal strength throughout Skin-warm and dry Assessment & Plan Assessment & Plan narrative: 70-year-old woman remote history of rectal cancer status post resection here for surveillance colonoscopy. Technical details were discussed. Risks, benefits, alternatives explained. Risks including but not limited to myocardial infarction, aspiration, bleeding, pain, missed lesion, incomplete examination, need for further radiographic studies, colonic perforation, and need for major abdominal surgery were discussed. All questions were answered to their satisfaction, and they are in agreement with this plan. Time Spent With Patient Critical Care time: I spent a total of [] minutes of critical care time on this patient's care today; this time is exclusive of procedural time.
--- NOTE | 2021-06-12 08:47 | SUR.PREOP ---
EKG done and viewed by Dr Armendariz. Son, Zachary, updated on time delay.
[2021-06-12] MEDS: MIDAZOLAM 5 MG/5 ML VIAL IV (08:50)
[2021-06-12] MEDS: fentaNYL 250 MCG/5 ML INJ IV (08:50)
--- NOTE | 2021-06-12 08:58 | PM.OP.COLON ---
Operative Date/Time/Diagnoses Date of procedure: 06/12/21 Time of procedure: 08:58 Pre-op diagnosis: hx of rectal cancer Post-op diagnosis: same Procedure & Clinicians Study performed: incomplete colonoscopy Indications: hx of rectal cancer, abnormal PET with left abdominal uptake and CT with distal colonic thickening. Surgeon: Hua Armendariz Procedure Notes Procedure in detail: Patient was brought to the procedure room placed the left lateral decubitus position. Time-out was performed. Procedural sedation was administered with Versed fentanyl. The colonoscope was carefully inserted into the anus and advanced forward. An approximately 10-15 cm no further progress could be made. The lumen was severely narrowed and I could not advance forward safely despite attempts at irrigation repositioning and pediatric colonoscope. There seems to be friable tissue not frankly a distinct mass at the prior anastomosis biopsy of this area was performed with forceps. Given her abnormal PET scan with increased uptake in the left side of the abdomen the CT that demonstrates thickening of the distal colon and an abnormal see a these findings are concerning for recurrence of rectal cancer. Will need further radiographic evaluation. Procedure was aborted Specimen(s): other (Rectal biopsy) Complications: none Impression: Colonic stricture versus rectal cancer recurrence Post-procedure Recommendations: Will call with biopsy results Disposition: same day surgery
== END 2021-06-12 10:24 | disposition home or self-care (01) ==
PROVIDERS: PCP Family Medicine; Referring Provider Surgery; Visit Provider Surgery
PROC: 0DJD8ZZ Inspection of Lower Intestinal Tract, Via Natural or Artificial Opening Endoscopic (ICD-10-PCS; CPT 45378; principal; 2021-06-12 07:45)
DX: R93.3 Abnormal findings on diagnostic imaging of other parts of digestive tract (principal); Z85.038 Personal history of other malignant neoplasm of large intestine; R97.0 Elevated carcinoembryonic antigen [CEA]; E78.5 Hyperlipidemia, unspecified; I10 Essential (primary) hypertension; E03.9 Hypothyroidism, unspecified; Z90.49 Acquired absence of other specified parts of digestive tract; Z53.8 Procedure and treatment not carried out for other reasons
CPT/HCPCS: 45380; 93005; J2250; J3010

== ENCOUNTER → 2021-06-21 12:46 | Outpatient (CLI) | payer MEDICARE, SELFPAY ==
--- NOTE | 2021-06-21 12:47 | DI.RAD.S_ITS ---
PROCEDURE: XR LUMBAR SPINE MIN 4V INDICATIONS: L5 fracture on MRI TECHNIQUE: 5 views of the lumbar spine were acquired, including bilateral oblique views COMPARISON: [facility], CT, CT ABDOMEN PELVIS W CON, 04/10/2021, 11:08. [facility], CR, XR LUMBAR SPINE 2-3V, 09/09/2020, 14:12. FINDINGS: Bones: 5 nonrib-bearing vertebrae are present. L4 superior endplate irregularity, likely reflecting a Schmorl's node. Small endplate osteophytosis. Facet arthrosis with moderate disc height loss and vacuum phenomena at L5-S1. No traumatic subluxation. No vertebral body compression fractures. Redemonstrated sclerosis about the bilateral sacroiliac joints. Soft tissues: Overlying bowel gas pattern is normal. No suspicious soft tissue calcifications. Oblique images: No pars defects. IMPRESSION: No acute osseous abnormality. Dictated by: Davi Zepeda M.D. on 06/21/2021 at 13:13 Approved by: Davi Zepeda M.D. on 06/21/2021 at 13:20
== END ==
PROVIDERS: PCP Family Medicine; Referring Provider Physical Medicine & Rehabilitation; Visit Provider Physical Medicine & Rehabilitation
DX: S32.059A Unspecified fracture of fifth lumbar vertebra, initial encounter for closed fracture (principal); M51.26 Other intervertebral disc displacement, lumbar region; M80.00XA Age-related osteoporosis with current pathological fracture, unspecified site, initial encounter for fracture
CPT/HCPCS: 72110; 99214

== ENCOUNTER → 2021-06-24 12:41 | Outpatient (CLI) | payer MEDICARE, SELFPAY ==
--- NOTE | 2021-06-24 14:37 | DI.MRI.S_ITS ---
PROCEDURE: MR ABDOMEN WO/W CON INDICATIONS: evaluate for rectal cancer reoccurence. Abnormal PET and CT TECHNIQUE: Coronal HASTE, axial 2D FLASH in- and [id number]; axial breath-hold T2 FSE. Dynamic axial VIBE during the administration of contrast; post-contrast coronal VIBE or 2D FLASH with fat saturation from the hepatic dome to the iliac crests. Optional diffusion weighted imaging and ADC may be performed. COMPARISON: [facility], [place], [place] PET CT FUSION SKULL 2 THIGH, 03/22/2021, 10:23. [facility], CT, CT ABDOMEN PELVIS W CON, 04/10/2021, 11:08. FINDINGS: Image quality: Excellent. Lung bases: No basal pleural effusions. Heart size is normal. Breast implants are present. Solid organs: Liver is normal in size and enhancement. There is a bilobed left hepatic lobe cyst measuring 4.9 cm in diameter. Subcentimeter cysts are scattered in the right hepatic lobe. There are at least three discrete arterially enhancing mild T2 hyperintensities in the right hepatic lobe, the largest in segment VII near the dome measuring 2.2 cm, others subcentimeter in size. The postcontrast these demonstrate arterial enhancement and become isointense to liver on venous and delayed phase imaging. An 8 mm lesion in segment , however demonstrates vague central washout on venous imaging, incompatible with classic hemangioma. There is no correlate on recent PET-CT. Gallbladder is normal. Biliary system is non dilated. There is pancreas divisum morphology. Pancreas is normal in morphology. Spleen is normal in size and enhancement. No adrenal nodules. Both kidneys demonstrate normal size and enhancement, without hydronephrosis. Nodes and vessels: No retroperitoneal or mesenteric adenopathy by size criteria. Minimally prominent left lower periaortic lymph node measures 9 mm in short axis, most recently 7 mm. No visible mesenteric lymph nodes to correspond to the PET-CT finding. Aorta and inferior vena cava are normal in size. Bowel and peritoneum: Unenhanced bowel loops are normal in caliber. No free fluid. Bones and soft tissues: No ventral hernias. Bone marrow is normal in overall signal. IMPRESSION: 1. Hepatic cysts, probable flash fill hemangiomas, and one segment subcentimeter hepatic lesion which does not have classic appearance for hemangioma. While this may be an atypical hemangioma, metastatic disease cannot be excluded and further attention to this lesion on follow-up studies is recommended. Correlate with lab values and consider three-month follow-up MR imaging. 2. Incidental note of pancreas divisum morphology. 3. Minimally prominent single left retroperitoneal lymph node, nonspecific. This was visible and not FDG avid on the previous PET-CT. Dictated by: Lou Arrieta M.D. on 06/26/2021 at 12:54 Approved by: Lou Arrieta M.D. on 06/26/2021 at 13:15
== END ==
PROVIDERS: PCP Family Medicine; Referring Provider Surgery; Visit Provider Surgery
DX: Z85.038 Personal history of other malignant neoplasm of large intestine (principal); R93.89 Abnormal findings on diagnostic imaging of other specified body structures
CPT/HCPCS: 74183; A9579

== ENCOUNTER → 2021-07-20 12:46 | Outpatient (CLI) | payer MEDICARE, SELFPAY | PROVIDERS: PCP Family Medicine; Referring Provider Surgery; Visit Provider Surgery | DX: Z85.038 Personal history of other malignant neoplasm of large intestine (principal); Z53.8 Procedure and treatment not carried out for other reasons ==

== ENCOUNTER → 2021-07-21 07:49 | Outpatient (CLI) | payer MEDICARE, SELFPAY | PROVIDERS: PCP Family Medicine; Referring Provider Surgery; Visit Provider Surgery | DX: Z85.038 Personal history of other malignant neoplasm of large intestine (principal); Z12.11 Encounter for screening for malignant neoplasm of colon; Z53.8 Procedure and treatment not carried out for other reasons ==

== ENCOUNTER → 2021-07-24 10:35 | Outpatient (CLI) | payer MEDICARE, SELFPAY ==
--- NOTE | 2021-07-24 | DI.RAD.S_ITS ---
PROCEDURE: FL BARIUM ENEMA W AIR CONTRAST INDICATIONS: INCOMPLETE COLONOSCOPY HX OF RECTAL CANCER COMPARISON: [facility], CT, CT ABDOMEN PELVIS W CON, 04/10/2021, 11:08. FINDINGS: KUB: Pre-procedural publication designer film demonstrates a normal bowel gas pattern. No suspicious abdominal calcifications. Visualized solid organ contours are normal in size. No suspicious bony lesions. Spine degenerative disc disease noted. Surgical clips project over the mid pelvis. Colon: There is adequate air-contrast opacification from the rectum to the cecum. There is an an area of narrowing in the junction of the distal sigmoid colon and rectum. The area of distal sigmoid colon and rectal narrowing persists throughout the study and has irregular margins.. Multiple diverticuli are scattered throughout the colon. Haustral folds are normal in thickness throughout. IMPRESSION: 1. Stricture with irregular margins involving the junction of the distal sigmoid colon and rectum. Differential diagnosis includes scarring, inflammation and malignancy. Recommend biopsy for definitive characterization. 2. Colonic diverticulosis. Dictated by: Taina Bourgeois MD, PhD on 07/24/2021 at 15:50 Approved by: Taina Bourgeois MD, PhD on 07/24/2021 at 16:07
== END ==
PROVIDERS: PCP Family Medicine; Referring Provider Surgery; Visit Provider Surgery
DX: Z12.11 Encounter for screening for malignant neoplasm of colon (principal); Z85.048 Personal history of other malignant neoplasm of rectum, rectosigmoid junction, and anus; K56.699 Other intestinal obstruction unspecified as to partial versus complete obstruction; K57.90 Diverticulosis of intestine, part unspecified, without perforation or abscess without bleeding
CPT/HCPCS: 74280

== ENCOUNTER → 2021-08-21 10:20 | Outpatient (CLI) | payer MEDICARE, SELFPAY ==
[2021-08-21 15:41] LABS: COVID19 -Nasal RAPID Negative (Negative)
== END ==
PROVIDERS: PCP Family Medicine; Referring Provider Physician Assistant; Visit Provider Physician Assistant
DX: Z20.822 Contact with and (suspected) exposure to COVID-19 (principal); R09.81 Nasal congestion
CPT/HCPCS: 87635

== ENCOUNTER → 2021-09-11 11:35 | Outpatient (CLI) | payer MEDICARE, SELFPAY ==
[2021-09-11 13:42] LABS: COVID19 -Nasal RAPID Negative (Negative)
== END ==
PROVIDERS: PCP Family Medicine; Visit Provider Physical Medicine & Rehabilitation
DX: Z20.822 Contact with and (suspected) exposure to COVID-19 (principal)
CPT/HCPCS: 87635; C9803

== ENCOUNTER 2021-09-12 13:44 | Outpatient (CLI) | payer MEDICARE, SELFPAY ==
[2021-09-12] VITALS (8 sets, daily range): BP systolic 103–161; BP diastolic 53–69; PULSE 58–78; RESP 14–36; TEMP 37.1; O2SAT 97–100
--- NOTE | 2021-09-12 13:46 | DI.RAD.S_ITS ---
PROCEDURE: PAIN L INTERLAMINAR/CAUDAL INJ INDICATIONS: SPONDYLOSIS COMPARISON: [facility], CR, XR LUMBAR SPINE MIN 4V, 06/21/2021, 12:49. FINDINGS: Fluoroscopic spot filming was performed to verify placement of a spinal needle at the L5-S1 level, as labeled on the films. Appropriate location of the needle tip was confirmed by injection of iodinated contrast. IMPRESSION: No significant intraprocedural abnormality. Dictated by: Raj Landers M.D. on 09/12/2021 at 14:24 Approved by: Raj Landers M.D. on 09/12/2021 at 14:24
[2021-09-12] MEDS: MIDAZOLAM 5 MG/5 ML VIAL IV (14:40)
[2021-09-12] MEDS: fentaNYL 100 MCG/2 ML INJ 50 MCG IV (14:41)
[2021-09-12] MEDS: IOPAMIDOL 15 ML VIAL 3 ML INJ (14:42)
[2021-09-12] MEDS: BUPIVACAINE 0.25% (PF) VIAL 2 ML INJ (14:43)
[2021-09-12] MEDS: BETAMETHASONE 30 MG/5 ML MDV 6 MG INJ (14:43)
[2021-09-12] MEDS: DEXAMETHASONE 10 MG/ML VIAL 20 MG INJ (14:43)
--- NOTE | 2021-09-12 14:55 | P.PCN_ITS ---
Date/Time/Diagnoses Date of procedure: 09/12/21 Time of procedure: 14:55 Pre-procedure diagnosis: 1. HNP WITH RADICULAR FEATURES, 2. MULTILEVEL CENTRAL STENOSIS, This procedure is found to meet the Governor's proclamation 20-24.2 regarding non urgent procedures. This patient meets multiple criteria for the procedure including continuing or worsening of significant or severe pain, combined with further deterioration of the patient's condition or overall health as well as delay in treatment would be expected to result in less positive ultimate medical outcome. Therefore the decision to perform the procedure in an outpatient hospital setting is found to be in accordance with guidelines of the proclamation. Post-procedure diagnosis: same Procedure Notes Procedure: 1. FLUOROSCOPICALLY GUIDED CONTRAST CONTROLLED INTERLAMINAR EPIDURAL STEROID INJECTION - L5/S1 Indications: Domonique is referred by Dr. Rees for treatment of Bilateral Foraminal Stenosis L >R LE symptoms. Physician: Sean Woody Total Fluoroscopy time (seconds): 5 Total sedation minutes: 10 Complications: none Procedure in detail & Post-procedure care: FINDINGS Multilevel Central Spinal Stenosis with Nerve Root Compression DESCRIPTION OF PROCEDURE Fluoroscopically guided, contrast-controlled L5/S1 translaminar epidural steroid injection. Following review of allergy and review of potential side effects and complications, including, but not necessarily limited to, infection, allergic reaction, local tissue breakdown, temporary as well as permanent nerve injury, paralysis, stroke and possible , the patient indicated that the patient understood and agreed to proceed. An informed consent document was signed by the patient, witnessed by a nurse, and placed in the patient's chart. Additionally, other treatment options including modalities, medications, and physical therapy were reviewed with the patient. After review of previous anaesthesic history and IV conscious sedation the marlene raymond was deemed safe to proceed with today?s procedure with IV conscious sedation as ASA class II designation. Safety time-out was performed to confirm patient ID, procedure to be performed and site of procedure. IV sedation was accomplished with a combination of 2mg of Versed and 50mcg of Fentanyl administered by the RN after DO order, titrated to patient comfort during the course of the procedure while the patient remained responsive to all verbal commands. In the prone position, following sterile prep and drape of the lumbar region, the L5/S1 translaminar space was identified fluoroscopically. The skin was anesthetized via a 25-gauge, 1.5-inch needle with 1% lidocaine solution. At this point, a 22-gauge short bevel spinal needle was atraumatically introduced and advanced under fluoroscopic guidance into the region of the L5/S1 translaminar space. Depth was confirmed on lateral view. Radiological data, including multiple fluoroscopic views of the lumbar spine, reveal a spinal needle at the L5/S1 translaminar space. Lateral views then show placement of the needle in the epidural space. Subsequent views show contrast material flowing superiorly and inferiorly in the epidural space. No vascular or intrathecal uptake is observed. At this point, using loss of resistance technique with saline and air, the epidural space was entered. This was confirmed following negative aspiration with injection of approximately 1.5cc of Isovue 200, showing excellent epidural flow without vascular or intrathecal uptake. At this point, 1 cc of 1% lidocaine solution combined with 3cc or 20mg of dexamethasone and 6mg of betamethasone was injected without incident. The patent tolerated the procedure without signs of symptoms of complications prior to transfer to the recovery area for further monitoring. The patient was then transferred to the recovery area where they were observed for an appropriate period of time after the injection. The patient reported a VAS score of 6 prior to the procedure and a post-procedure VAS of 0. POST OP INSTRUCTIONS The patient was provided a Pain Log to continue to record their response to the target-specific procedure prior to follow-up visit with their referring physician. Additionally, specific post-injection care instructions and a contact number to our office were provided if concerns arise regarding possible complications associated with the procedure are suspected.
== END 2021-09-12 15:28 ==
LOC: RAD 13:46
PROVIDERS: PCP Family Medicine; Referring Provider Physical Medicine & Rehabilitation; Visit Provider Physical Medicine & Rehabilitation
DX: M51.17 Intervertebral disc disorders with radiculopathy, lumbosacral region (principal); M48.07 Spinal stenosis, lumbosacral region
CPT/HCPCS: 62323; 99152; J0702; J1100; J2250; J3010

== ENCOUNTER → 2021-09-29 11:11 | Outpatient (CLI) | payer MEDICARE, SELFPAY ==
--- NOTE | 2021-09-29 11:13 | DI.MRI.S_ITS ---
PROCEDURE: MR ABDOMEN WO/W CON INDICATIONS: h/o colon cancer;abdnormal MR of abdomen/pelvis TECHNIQUE: Coronal HASTE, axial 2D FLASH in- and [id number]; axial breath-hold T2 FSE. Dynamic axial VIBE during the administration of contrast; post-contrast coronal VIBE or 2D FLASH with fat saturation from the hepatic dome to the iliac crests. Optional diffusion weighted imaging and ADC may be performed. COMPARISON: [facility], CT, CT ABDOMEN PELVIS W CON, 04/10/2021, 11:08. [facility], MR, MR ABDOMEN WO/W CON, 06/24/2021, 13:26. FINDINGS: Image quality: Excellent. Lung bases: No basal pleural effusions. Heart size is normal. Solid organs: There is interval increase in size and number of multiple T1 hypointense and T2 hyperintense mass lesions throughout the liver. These demonstrate peripheral hypervascular enhancement following contrast administration with washout on portal venous and delayed phases. Centrally, there is hypoenhancement on the arterial phase with delayed enhancement likely reflecting necrosis. The findings are consistent with metastatic disease. A automotive leasing sales representative mass in segment 7 of the right hepatic lobe measures up to 3.3 x 2.7 cm in transverse dimension on series 13, image 35 compared to 1.5 x 1.3 cm on the prior study. Within segment 6, there is a mass measuring up to 4.2 x 4.2 cm on series 13, image 41 which appears new compared to the prior study. Inferiorly within segment 6 there is a mass measuring 3.7 x 3.0 cm on series 13, image 16 which previously measured 0.7 x 0.7 cm. There is a lobulated cyst redemonstrated within the left hepatic lobe. Biliary system is non dilated. Pancreas is normal in morphology. Spleen is normal in size and enhancement. No adrenal nodules. Kidneys demonstrate no hydronephrosis. Nodes and vessels: There is new extensive retroperitoneal and mesenteric lymphadenopathy with enlarged confluent nodes. A automotive leasing sales representative left periaortic node measures up to 3.4 x 2.6 cm on series 13, image 63. A automotive leasing sales representative mesenteric casey mass measures up to 3.7 x 2.2 cm on series 17, image 69. There also enlarged retrocrural lymph nodes within the upper abdomen including a automotive leasing sales representative node measuring up to 1.6 x 1.2 cm on series 17, image 40. Findings are consistent with metastatic disease. Aorta and inferior vena cava are normal in size. Bowel and peritoneum: Visualized bowel loops are normal in caliber. No free fluid. Bones and soft tissues: No ventral hernias. Bone marrow is normal in overall signal. IMPRESSION: 1. Increase in size and number of numerous hepatic mass lesions throughout the liver consistent with marked progression of metastatic disease. 2. Extensive new retroperitoneal, mesenteric, and retrocrural lymphadenopathy consistent with marked progression of metastatic disease. A secure chat message was sent to Drs. Ritter and Ayo on 09/29/21. Dictated by: Romeo Post M.D. on 09/29/2021 at 16:16 Approved by: Romeo Post M.D. on 09/29/2021 at 16:41
== END ==
PROVIDERS: PCP Family Medicine; Referring Provider Internal Medicine Hematology & Oncology; Visit Provider Internal Medicine Hematology & Oncology
DX: Z85.038 Personal history of other malignant neoplasm of large intestine (principal); K76.9 Liver disease, unspecified; R59.1 Generalized enlarged lymph nodes
CPT/HCPCS: 74183; A9579

== ENCOUNTER → 2021-10-10 17:46 | Outpatient (CLI) | payer MEDICARE, SELFPAY ==
--- NOTE | 2021-10-10 17:48 | DI.MRI.S_ITS ---
PROCEDURE: MR HEAD/BRAIN WO/W CON INDICATIONS: metastatic cancer of unknown primary TECHNIQUE: Noncontrast axial T1 spin echo, axial T2 fast spin echo, sagittal and axial FLAIR, coronal T2 fast spin echo, axial gradient echo, axial diffusion and ADC through the brain. After the administration of contrast, axial and coronal T1 spin echo with fat saturation through the brain. COMPARISON: None. FINDINGS: Image quality: Excellent. CSF spaces: Basal cisterns are patent. No extra-axial fluid collections. Ventricles are normal in size and shape. Brain: No midline shift. No intracranial bleeds or masses. No abnormal intracranial enhancement. There is cerebral volume loss for age. There is at least moderate periventricular white matter chronic small vessel ischemic change. The brainstem appears normal. Diffusion-weighted images demonstrate no acute ischemic insults. No chronic ischemic insults. Normal intravascular flow voids are present. Skull and face: Calvarial marrow is normal in signal. Orbits appear normal. Sinuses: Sinuses and mastoids appear clear. IMPRESSION: 1. Age-related volume loss and at least moderate small vessel ischemic change. 2. No evidence of acute stroke, hemorrhage, or mass. No evidence of metastatic disease to the brain. Dictated by: Jonathan Vargas M.D. on 10/10/2021 at 22:22 Approved by: Jonathan Vargas M.D. on 10/10/2021 at 22:24
== END ==
PROVIDERS: PCP Family Medicine; Referring Provider Internal Medicine Hematology & Oncology; Visit Provider Internal Medicine Hematology & Oncology
DX: R91.8 Other nonspecific abnormal finding of lung field (principal); R97.0 Elevated carcinoembryonic antigen [CEA]; C78.7 Secondary malignant neoplasm of liver and intrahepatic bile duct; C80.1 Malignant (primary) neoplasm, unspecified
CPT/HCPCS: 70553; A9579

== ENCOUNTER 2021-10-23 07:04 | Outpatient (CLI) | payer MEDICARE, SELFPAY ==
[2021-10-23] VITALS (13 sets, daily range): BP systolic 90–116; BP diastolic 44–76; PULSE 47–57; RESP 12–16; TEMP 36.6–37; O2SAT 96–100; BMI 19.5
--- NOTE | 2021-10-23 | PATH_ITS ---
[facility] Accession Number: [id number] . 01 Material submitted: . liver - RIGHT LOBE LIVER MASS . 02 Diagnosis: Right Lobe Liver Mass, Needle Core Biopsy: Positive for poorly differentiated carcinoma by immunohistochemistry studies. Please see comment. MRV 10/27/2021 1647 Local . 02 Comment: As part of routine quality assurance practice manager, Dr. Ingram also reviewed this case and agrees with the diagnosis. . Voicemail message left with Dr. Rollins's [place] office 10-27-21 at approximately 4:44 p.m. . The majority of the specimen consists of benign hepatic parenchyma. There is a minute focus of poorly differentiated carcinoma present at the end of one tissue core. The atypical cells are immunopositive for AREN, but other tumor specific markers are inconclusive/negative. There is insuffiicent tumor volume for additional studies. This patient's previous history of invasive moderately well-differentiated colonic adenocarcinoma is noted ([facility] [id number]; 06/09/02). . 02 Electronically signed: . Marzena Richardson MD, Pathologist NPI- [id number] . 01 Gross description: . RIGHT LOBE LIVER MASS: Received in formalin are 3 fragment(s) of mims, soft tissue measuring 0.1 x 0.1 x 0.1 cm to 0.2 x 0.1 x 0.1 cm submitted entirely in 1 cassette(s) /COOKIE 10/24/2021 0010 Local . 02 Microscopic: . Results of immunohistochemical stains are as follows: . AREN - Positive. CK7 - Negative. CK20 - Negative. Napsin A - Negative. SMA - Negative. Arginase-1 - Negative. TTF-1 - Negative. PAX-8 - Negative. PIPER-3 - Negative. S100 - Negative. . All of the controls stained showed appropriate reactivity. . The malignant cells are immunopositive for AREN, but are inconclusive as to site of origin. There is insufficient volume of tumor present for further characterization. There is insufficient tissue for further molecular characterization. . 02 Pathologist provided ICD-10: C78.7 . 02 CPT . 636491, N01829, D59135 Specimen Comment: A courtesy copy of this report has been sent to [phone] Performed at: 01 [facility] [address] [place] [address], [place], [place] [id number] MD Romeo Ferrer MD Phone: [phone] Performed at: 02 [facility] [address] [place] [id number] MD Barbara Ingram MD Phone: [phone]
--- NOTE | 2021-10-23 07:19 | DI.US.S_ITS ---
PROCEDURE: US BIOPSY LIVER Ultrasound-guided liver biopsy with sedation analgesia for 20 minutes. INDICATIONS: LIVER METS TECHNIQUE: The indications, alternatives, benefits, risks, and complications of the procedure were explained to the patient. Written informed consent was obtained and placed in the chart. Continuous EKG and hemodynamic monitoring was started by trained personnel. Real-time sonography was utilized to choose the site for percutaneous hepatic biopsy. The skin was prepped and draped in the usual sterile fashion. 1% lidocaine was infiltrated down to the hepatic capsule. A coaxial needle was then advanced into the liver under direct sonographic visualization. A biopsy apparatus was then utilized, and core biopsies were obtained. The needle was then withdrawn; a bandage and overlying weight were applied to the biopsy site. COMPARISON: None. FINDINGS: Biopsy site(s): Right hepatic lobe Needle: [employer] biopsy needle set. Number of passes: 4 Medications: 1% lidocaine for local anaesthesia. IV Versed and Fentanyl for conscious sedation (see nursing record). Complications: None. IMPRESSION: Successful ultrasound-guided liver biopsy, with pathology results pending. Dictated by: Davi Zepeda M.D. on 10/23/2021 at 9:37 Approved by: Davi Zepeda M.D. on 10/23/2021 at 9:50
[2021-10-23] MEDS: MIDAZOLAM 2 MG/2 ML VIAL 1 MG IV ×2 (09:09→09:33)
[2021-10-23 12:37] LABS: Hematocrit 26.3 % (36-46)
--- NOTE | 2021-10-23 13:30 | SUR.PHASEII ---
Post Lab drawn at appropriate time by HANNA Bustillos. Results shown to Dr. Davi Zeepda and stated pt could be discharged. Pt left in stable condition.
== END 2021-10-23 13:20 ==
PROVIDERS: Radiology Diagnostic Radiology; PCP Family Medicine; Referring Provider Internal Medicine Hematology & Oncology; Visit Provider Internal Medicine Hematology & Oncology
DX: C78.7 Secondary malignant neoplasm of liver and intrahepatic bile duct (principal); C80.1 Malignant (primary) neoplasm, unspecified
CPT/HCPCS: 36415; 47000; 76942; 85014; 85049; 85610; 85730; J2250

== ENCOUNTER → 2021-10-31 12:21 | Outpatient (CLI) | payer MEDICARE, SELFPAY ==
[2021-10-31 13:36] LABS: Alanine Aminotransferase 63 IU/L (<35); Albumin 4.2 g/dL (3.5-5.0); Albumin Globulin Ratio 1.2 (1.0-2.8); Alkaline Phosphatase 212 U/L (38-126); Aspartate Aminotransferase 105 IU/L (14-36); Bilirubin Total 0.3 mg/dL (0.2-1.3); Blood Urea Nitrogen 13 mg/dL (7-17); Calcium 9.8 mg/dL (8.4-10.2); Carbon Dioxide 29 mmol/L (22-32); Chloride 97 mmol/L (98-107); Estimated Glomerular Filt Rate > 60.0 mL/min (>60); Globulin 3.4 g/dL (1.7-4.1); Glucose 100 mg/dL (80-110); HEMOLYSIS < 15 (0-50); Potassium 4.4 mmol/L (3.4-5.1); Sodium 133 mmol/L (137-145); Total Protein 7.6 g/dL (6.3-8.2)
== END ==
PROVIDERS: PCP Family Medicine; Referring Provider Family Medicine; Visit Provider Family Medicine
DX: I95.9 Hypotension, unspecified (principal); R74.8 Abnormal levels of other serum enzymes
CPT/HCPCS: 36415; 80053

== ENCOUNTER → 2021-11-08 11:00 | Outpatient (CLI) | payer MEDICARE, SELFPAY ==
[2021-11-08 12:02] LABS: Alanine Aminotransferase 37 IU/L (<35); Albumin Globulin Ratio 1.3 (1.0-2.8); Alkaline Phosphatase 190 U/L (38-126); Aspartate Aminotransferase 74 IU/L (14-36); BUN Creatinine Ratio 18.8 (6-22); Bilirubin Total 0.4 mg/dL (0.2-1.3); Blood Urea Nitrogen 12 mg/dL (7-17); Calcium 9.5 mg/dL (8.4-10.2); Carbon Dioxide 27 mmol/L (22-32); Chloride 99 mmol/L (98-107); Estimated Glomerular Filt Rate > 60.0 mL/min (>60); Globulin 3.2 g/dL (1.7-4.1); Glucose 125 mg/dL (80-110); HEMOLYSIS < 15 (0-50); Potassium 4.4 mmol/L (3.4-5.1); Sodium 134 mmol/L (137-145); Total Protein 7.2 g/dL (6.3-8.2)
== END ==
PROVIDERS: PCP Family Medicine; Referring Provider Family Medicine; Visit Provider Family Medicine
DX: I95.9 Hypotension, unspecified (principal); R74.8 Abnormal levels of other serum enzymes
CPT/HCPCS: 36415; 80053

== ENCOUNTER 2021-11-13 08:06 | Outpatient (CLI) | payer MEDICARE, SELFPAY ==
[2021-11-13] VITALS (12 sets, daily range): BP systolic 104–131; BP diastolic 55–76; PULSE 53–69; RESP 14–20; TEMP 36.1–37.1; O2SAT 96–100
--- NOTE | 2021-11-13 | PATH_ITS ---
[facility] Accession Number: [id number] . 01 Material submitted: . liver - RIGHT LIVER MASS . 02 Diagnosis: Right Liver Mass, Needle Core Biopsy: Poorly differentiated adenocarcinoma, favor metastasis from gastrointestinal / pancreatobiliary or enteric pulmonary origin by immunohistochemistry studies. MMR panel pending; results will be reported as an addendum. Please see comment. MRV 11/16/2021 1430 Local . 02 Comment: The differential diagnosis includes a metastatic adenocarcinoma of gastrointestinal / pancreatobiliary origin and a metastatic pulmonary adenocarcinoma with enteric differentiation. This patient's previous history of a LAR procedure for rectal carcinoma in 2001 is noted. . Results discussed with Dr. Rollins on 11-16-21 at approximately 1:32 p.m. Omniseq request submitted (with Stella's phone number) to Qian Xiao[facility]er office. MMR panel requested; results will be reported as an addendum. . As part of routine quality assurance manager, Dr. Ingram also reviewed this case and agrees with the interpretation. . 02 Electronically signed: . Marzena Richardson MD, Pathologist NPI- [id number] . 01 Gross description: . RIGHT LIVER MASS: Received in formalin are 4 fragment(s) of mims, soft tissue measuring 0.6 x 0.1 x 0.1 cm to 1.3 x 0.1 x 0.1 cm submitted entirely in 1 cassette(s) /COOKIE 11/14/2021 2300 Local . 02 Microscopic: . An immunohistochemistry study is performed to evaluate the cells of interest. The control stains show appropriate reactivity. . RESULTS: AREN: Positive. CK7: Negative. CK20: Rare positive. Napsin A: Negative. PIPER-3: Negative. TTF-1: Negative. Arginase 1: Negative. PAX-8: Negative. WT1: Negative. HepPar1: Negative. Villin: Positive. CDX2: Positive. P63: Negative. . The neoplastic cells are immunopositive for AREN with rare CK20 positivity and immunopositivity for villin and CDX2. The neoplastic cells are immunonegative for CK7, napsin A, PIPER-3, TTF-1, PAX-8, WT1, Arginase-1, HepPar1, and p63. These findings support a possible gastrointestinal / pancreatobiliary origin, however, metastasis from a primary enteric lung adenocarcinoma cannot be completely excluded. . * This test was developed and its performance characteristics determined by [employer]. It has not been cleared or approved by the U.S. Food and Drug Administration. The FDA has determined that such clearance or approval is not necessary. This test is used for clinical purposes. It should not be regarded as investigational or for research . 02 Pathologist provided ICD-10: C78.7 . 02 CPT . 230064, F57964, G38398 Specimen Comment: A courtesy copy of this report has been sent to [phone] Performed at: 01 [facility] Cytology [address] [place] [id number] MD Romeo Ferrer MD Phone: [phone] Performed at: 02 [facility] [address] [place] [id number] MD Barbara Ingram MD Phone: [phone]
--- NOTE | 2021-11-13 08:22 | DI.US.S_ITS ---
PROCEDURE: US BIOPSY LIVER Ultrasound-guided liver biopsy with sedation analgesia for 20 minutes. INDICATIONS: REPEAT LIVER BIOPSY TECHNIQUE: The indications, alternatives, benefits, risks, and complications of the procedure were explained to the patient. Written informed consent was obtained and placed in the chart. Continuous EKG and hemodynamic monitoring was started by trained personnel. Real-time sonography was utilized to choose the site for percutaneous hepatic biopsy. The skin was prepped and draped in the usual sterile fashion. 1% lidocaine was infiltrated down to the hepatic capsule. A coaxial needle was then advanced into the liver under direct sonographic visualization. A biopsy apparatus was then utilized, and core biopsies were obtained. The needle was then withdrawn; a bandage and overlying weight were applied to the biopsy site. COMPARISON: None. FINDINGS: Biopsy site(s): Right hepatic lobe mass. Needle: Nuve biopsy needle set. Number of passes: 4 Medications: 1% lidocaine for local anaesthesia. IV Versed and Fentanyl for conscious sedation for 20 minutes (see nursing record). Complications: None. IMPRESSION: Successful ultrasound-guided liver biopsy, with pathology results pending. No immediate complications. Dictated by: Taina Bourgeois MD, PhD on 11/13/2021 at 15:43 Approved by: Taina Bourgeois MD, PhD on 11/13/2021 at 15:45
[2021-11-13 08:46] LABS: Add Manual Diff / Slide Review NO; Basophils Absolute Auto 0 /uL (0-100); Basophils Percent Auto 0.9 % (0-2); Eosinophils Absolute Auto 200 /uL (0-450); Hematocrit 28.2 % (36-46); Hemoglobin 8.9 g/dL (12.0-16.0); Lymphocytes Absolute Auto 800 /uL (1100-4500); Lymphocytes Percent Auto 14.7 % (25-40); Mean Corpuscular HGB Conc 31.7 % (30-36); Mean Corpuscular Hemoglobin 23.2 PG (26-34); Mean Corpuscular Volume 73.2 fL (80-100); Monocytes Absolute Auto 600 /uL (0-900); Monocytes Percent Auto 10.8 % (3-14); Neutrophils Absolute Auto 3900 /uL (1500-7000); Neutrophils Percent Auto 70.6 % (50-75); Platelet Count 328 X10^3/uL (150-400); Red Blood Cell Count 3.85 X10^6/uL (4.0-5.2); Red Cell Distribution Width 20.2 % (11.6-14.8); White Blood Cell Count 5.5 X10^3/uL (4.5-11.0)
[2021-11-13 09:00] LABS: INR 1.1 (0.9-1.3); Prothrombin Time 12.1 SECONDS (10.1-12.7)
[2021-11-13 09:06] LABS: Anisocytosis 1+
[2021-11-13] MEDS: fentaNYL 100 MCG/2 ML INJ IV (09:50)
[2021-11-13] MEDS: MIDAZOLAM 2 MG/2 ML VIAL IV (10:05)
--- NOTE | 2021-11-13 11:07 | SUR.PHASEII ---
Addendum entered by Elda Rubin R.N. 11/13/21 11:16: Declined food, fluids other than water. Original Note: 1020 Returned to [facility] by HANNA Arroyo. Alex over site, bandaid CDI, no swelling or pain at the site. Patient is thin without adipose tissue at the site. Denied pain/nausea. Sips of water were given. Call light given.
--- NOTE | 2021-11-13 12:34 | SUR.PHASEII ---
right later biopsy site dry and intact. No swelling noted. Sand bag removed. HOB raised and coffee served.
--- NOTE | 2021-11-13 13:44 | SUR.PHASEII ---
Patient lying in prep for orthostatic VS at 1345. She continues to decline food, tolerating fluids well. She is anxious to go home, often verbalized displeasure in the delayed discharge. Patient reminded that she was warned of the extended [facility] stay following her procedure. She is frustrated since this is her second time of having the procedure.
--- NOTE | 2021-11-13 14:06 | SUR.PHASEII ---
Have had difficulty entering the order for the 1320 HCT. The computer required a code, none of which seemed appropriate for this patient. Unable to reach Chelly in Ultrasound, Ezio, [facility] Rfid Analyst; [facility] non destructive testing supervisor. Lab staff unable to answer the questions. Paige Saez RN, OR non destructive testing supervisor attempted to enter the order twice unsuccessfully. She called someone and we have been waiting for a return phone call to enable us to enter the order. Guille Pennington, has gone to [facility] and the lab to try and obtain the information. Lab told her that it has been ordered. She will inform the patient that it should be drawn soon. Dietary brought scones for the patient at her request. HOB elevated. Patient stable, no pain, bandaid and abdomen unchanged at last check.
--- NOTE | 2021-11-13 14:23 | SUR.PHASEII ---
Lab here to draw Hct
[2021-11-13 14:28] LABS: Hematocrit 29.4 % (36-46)
--- NOTE | 2021-11-13 14:48 | SUR.PHASEII ---
1434 HCT and orthostatic VS called to Dr. Bourgeois. Told him that patient was stable, denied being light headed or dizzy, stable when ambulated to the bathroom. He ok'd the patient discharge.
== END 2021-11-13 14:47 | disposition home or self-care (01) ==
PROVIDERS: PCP Family Medicine; Referring Provider Internal Medicine Hematology & Oncology; Visit Provider Internal Medicine Hematology & Oncology
DX: C78.7 Secondary malignant neoplasm of liver and intrahepatic bile duct (principal)
CPT/HCPCS: 36415; 47000; 76942; 85014; 85025; 85610; J2250; J3010

== ENCOUNTER → 2021-11-27 10:50 | Outpatient (CLI) | payer MEDICARE, SELFPAY ==
[2021-11-27 13:35] LABS: COVID19 -Nasal RAPID Negative (Negative)
== END ==
PROVIDERS: PCP Family Medicine; Visit Provider Surgery
DX: Z01.812 Encounter for preprocedural laboratory examination (principal); Z20.822 Contact with and (suspected) exposure to COVID-19
CPT/HCPCS: 87635; C9803

== ENCOUNTER 2021-11-28 09:02 | Day surgery (SDC) | payer MEDICARE, SELFPAY ==
[2021-11-28] VITALS (11 sets, daily range): BP systolic 90–120; BP diastolic 42–70; PULSE 47–82; RESP 10–20; TEMP 36.3–36.9; O2SAT 90–100; BMI 17.6
--- NOTE | 2021-11-28 | PATH_ITS ---
[facility] Accession Number: [id number] . 01 Material submitted: . rectum - RECTAL ANASTOMOSIS . 02 Diagnosis: Rectal Anastomosis, Biopsy: Colonic mucosa with mild crypt architectural distortion, consistent with anastomotic site. Negative for active inflammation, granulomata, dysplasia or malignancy. MRV 11/30/2021 1056 Local . 02 Electronically signed: . Pedrito Ta MD, PhD, Pathologist NPI- [id number] . 01 Gross description: . RECTAL ANASTOMOSIS: Received in formalin are 2 fragment(s) of mims, soft tissue measuring 0.3 x 0.2 x 0.1 cm to 0.2 x 0.1 x 0.1 cm submitted entirely in 1 cassette(s) /CPE 11/29/2021 0419 Local . 02 Pathologist provided ICD-10: Z85.048 . 02 CPT . 296952 Specimen Comment: A courtesy copy of this report has been sent to [phone] Performed at: [address] [facility] Cytology [address] [facility], [place], [place] [id number] MD Romeo Ferrer MD Phone: [phone] Performed at: 02 [facility] [address] [place], [place] [id number] MD Barbara Ingram MD Phone: [phone]
--- NOTE | 2021-11-28 09:41 | PM.HP.1 ---
History of Present Illness History of Present Illness Date Patient Seen: 11/28/21 Time Patient Seen: 09:41 Chief complaint: SDC Narrative: 71-YEAR-OLD WOMAN HISTORY OF A LOW ANTERIOR RESECTION FOR RECTAL CANCER WHO HAS A DISTAL COLONIC STRICTURE. SHE HAS KNOWN METASTATIC ADENOCARCINOMA OF THE LIVER OF UNKNOWN ETIOLOGY. PREVIOUS COLONOSCOPY WAS ATTEMPTED RECENTLY BUT WAS UNABLE TO PASS THE STRICTURE. SHE IS HERE FOR A RE-ATTEMPT OF A SIGMOIDOSCOPY. Patient History Medical History Herniated nucleus pulposus, lumbar History of colon cancer Hyperlipidemia Hypertension Hypothyroidism L5 vertebral fracture Low back pain radiating to left lower extremity Lumbar radiculopathy Neuroforaminal stenosis of lumbosacral spine Venous stasis Weight loss Surgical History History of breast augmentation Status post tubal ligation Family & Social History Family History Brother Mental health problem Brother Alcoholism Father Lung cancer Mother Heart disease Sister Age: 68 Ovarian cancer Parkinson's disease Other Cancer Social History: household members none Tobacco & Substance use: Tobacco type cigarettes Smoking Status Current every day smoker alcohol intake current alcohol intake frequency a few times a week Substance Use Type does not use Meds Home Medications and Allergies Home Medications Medication Instructions Recorded Confirmed Type lorazepam 1 mg tablet 1 mg PO BIDP PRN #45 tab 05/29/21 11/28/21 Rx levothyroxine 88 mcg tablet See Rx Instructions .ROUTE 08/28/21 11/28/21 Rx .COMPLEX #90 tab sertraline 50 mg tablet 75 mg PO QPM 11/28/21 11/28/21 History Allergies Allergy/AdvReac Type Severity Reaction Status Date / Time Sulfa (Sulfonamide Allergy Mild RASH Verified 11/28/21 09:15 Antibiotics) [SULFA (SULFONAMIDE ANTIBIOTICS)] Exam Vital Signs (past 8 hours): - 11/28/21 09:22 Temperature 97.9 F Pulse Rate 59 L Respiratory Rate 20 Blood Pressure 120/63 Pulse Oximetry 100 Oxygen Delivery Method Room Air Narrative Exam Narrative: GENERAL: Cachectic elderly woman no apparent distress HEENT: No scleral icterus CV: Regular rate, no peripheral edema LUNGS: No increased work of breathing. Patient speaks in full sentences without oxygen support. ABDOMEN: Soft, non-tender, non-distended NEURO: Nonfocal, normal strength throughout SKIN: Warm and dry Assessment & Plan Assessment and plan (1) Colonic stricture: Status: Acute Assessment & Plan narrative: 71-year-old woman history of remote rectal cancer insert now with metastatic adenocarcinoma of uncertain primary with a distal colonic stricture here for sigmoidoscopy. Procedure was discussed with the patient including risks of bleeding, missed diagnosis, intestinal perforation. Her questions have been answered and she is in agreement with this plan Time Spent With Patient Critical Care time: I spent a total of [] minutes of critical care time on this patient's care today; this time is exclusive of procedural time.
[2021-11-28] MEDS: MIDAZOLAM 5 MG/5 ML VIAL IV (09:43)
[2021-11-28] MEDS: fentaNYL 250 MCG/5 ML INJ IV (09:44)
--- NOTE | 2021-11-28 10:06 | P.OP.COLON_ITS ---
Operative Date/Time/Diagnoses Date of procedure: 11/28/21 Time of procedure: 10:06 Pre-op diagnosis: Metastatic adenocarcinoma to the liver of unknown primary History of rectal cancer status post low anterior resection Post-op diagnosis: same Procedure & Clinicians Study performed: Flexible sigmoidoscopy Same procedure as scheduled: Yes Indications: Metastatic adenocarcinoma to the liver of unknown primary in the setting of a remote history of rectal cancer now with colonic stricture Surgeon: Hua Armendariz Procedure Notes Procedure in detail: Medications: Conscious sedation using 75mg IV midazolam and 4mcg IV of fentanyl The history and physical was performed/updated and the patient is ASA class is 3. The procedure was discussed in detail with the patient. Potential risks complications including infection, bleeding, missed diagnosis, perforation, need for surgery, and were explained. Their questions were answered and informed consent was obtained. Patient was brought to the procedure room and placed standard monitoring equipment. The patient's vital signs were monitored continuously throughout the entire procedure. Prior to starting time-out was performed. The patient was placed in the left lateral recumbent position. Procedural sedation was administered. Examination began with a thorough inspection of the perianal area there was no evidence of fissures, fistulae, external hemorrhoids or cutaneous m alignancy. The esophagoduodenoscopy scope was placed into the anal canal and advanced forward. There was a large burden of stool. The anastomosis was tight but I was able to a transverse it and the scope was advanced to approximately 40 cm. There were no large masses visible within the examined colon however the quality of the prep was quite poor. There was inflammation at the anastomosis and biopsies of this were taken with the forceps. FINDINGS 1. Colonic stricture with associated inflammation of the distal anastomosis The patient tolerated the procedure well. They will be discharged once criteria are met. The sedation time was 15 minutes. Specimen(s): other (rectal anastamosis) Complications: none Impression: colonic stricture Post-procedure Plan for aftercare: will notify with pathology Disposition: same day surgery
[2021-11-28] MEDS: LACTATED RINGERS 1,000 ML 200 ML IV (12:04)
== END 2021-11-28 12:02 | disposition home or self-care (01) ==
PROVIDERS: PCP Family Medicine; Referring Provider Surgery; Visit Provider Surgery
PROC: 0DJD8ZZ Inspection of Lower Intestinal Tract, Via Natural or Artificial Opening Endoscopic (ICD-10-PCS; CPT 45378; principal; 2021-11-28 10:00)
DX: Z12.11 Encounter for screening for malignant neoplasm of colon (principal); Z85.048 Personal history of other malignant neoplasm of rectum, rectosigmoid junction, and anus; Z90.49 Acquired absence of other specified parts of digestive tract; C78.7 Secondary malignant neoplasm of liver and intrahepatic bile duct; K56.699 Other intestinal obstruction unspecified as to partial versus complete obstruction
CPT/HCPCS: 45331; 99152; J2250; J3010

== ENCOUNTER → 2021-12-25 12:29 | Outpatient (CLI) | payer MEDICARE, SELFPAY ==
[2021-12-25 13:20] LABS: Add Manual Diff / Slide Review YES; Hematocrit 29.3 % (36-46); Mean Corpuscular HGB Conc 30.7 % (30-36); Mean Corpuscular Hemoglobin 20.9 PG (26-34); Platelet Count 357 X10^3/uL (150-400); Red Blood Cell Count 4.31 X10^6/uL (4.0-5.2); Red Cell Distribution Width 22.1 % (11.6-14.8); White Blood Cell Count 6.5 X10^3/uL (4.5-11.0)
[2021-12-25 13:21] LABS: Alanine Aminotransferase 22 IU/L (<35); Albumin 3.8 g/dL (3.5-5.0); Alkaline Phosphatase 197 U/L (38-126); Aspartate Aminotransferase 70 IU/L (14-36); BUN Creatinine Ratio 27.5 (6-22); Bilirubin Total 0.3 mg/dL (0.2-1.3); Blood Urea Nitrogen 14 mg/dL (7-17); Calcium 8.7 mg/dL (8.4-10.2); Carbon Dioxide 26 mmol/L (22-32); Chloride 103 mmol/L (98-107); Estimated Glomerular Filt Rate > 60 mL/min (>60); Globulin 3.9 g/dL (1.7-4.1); Glucose 96 mg/dL (80-110); HEMOLYSIS < 15 (0-50); Potassium 4.5 mmol/L (3.4-5.1); Sodium 134 mmol/L (137-145); Total Protein 7.7 g/dL (6.3-8.2)
[2021-12-25 13:49] LABS: Neutrophils Absolute Manual 5070 /uL (3000-5900); Total Cells Counted 100
[2021-12-25 13:52] LABS: Hypochromasia 1+; Microcytosis 2+; Target Cells 1+
== END ==
PROVIDERS: Internal Medicine Hematology & Oncology; PCP Family Medicine; Referring Provider Family Medicine; Visit Provider Family Medicine
DX: C79.9 Secondary malignant neoplasm of unspecified site (principal); C80.1 Malignant (primary) neoplasm, unspecified
CPT/HCPCS: 36415; 80053; 85007; 85025

== ENCOUNTER 2022-01-02 10:35 | Day surgery (SDC) | payer MEDICARE, SELFPAY ==
[2022-01-02] VITALS (8 sets, daily range): BP systolic 111–127; BP diastolic 48–69; PULSE 56–68; RESP 12–22; TEMP 36.3–36.5; O2SAT 97–100; BMI 18.0
[2022-01-02] MEDS: LACTATED RINGERS 1,000 ML 42 ML IV (11:09)
[2022-01-02 11:16] LABS: COVID19 -Nasal RAPID Negative (Negative)
--- NOTE | 2022-01-02 11:17 | PM.HP.1 ---
History of Present Illness History of Present Illness Date Patient Seen: 01/02/22 Time Patient Seen: 11:17 Chief complaint: PORT PLACEMENT Narrative: 71-year-old woman here for a Port-A-Cath placement. She has metastatic adenocarcinoma of unknown primary hepato biliary versus gastrointestinal. She has never had a previous indwelling venous catheter. She is feeling well today no complaint. Patient History Medical History Herniated nucleus pulposus, lumbar History of colon cancer Hyperlipidemia Hypertension Hypothyroidism L5 vertebral fracture Low back pain radiating to left lower extremity Lumbar radiculopathy Neuroforaminal stenosis of lumbosacral spine Venous stasis Weight loss Surgical History History of breast augmentation Status post tubal ligation Family & Social History Family History Brother Mental health problem Brother Alcoholism Father Lung cancer Mother Heart disease Sister Age: 68 Ovarian cancer Parkinson's disease Other Cancer Social History: household members none Tobacco & Substance use: Tobacco type cigarettes Smoking Status Current every day smoker alcohol intake current alcohol intake frequency 0-2 drinks per day Substance Use Type does not use Meds Home Medications and Allergies Home Medications Medication Instructions Recorded Confirmed Type lorazepam 1 mg tablet 1 mg PO BIDP PRN #45 tab 05/29/21 01/02/22 Rx levothyroxine 88 mcg tablet See Rx Instructions .ROUTE 08/28/21 01/02/22 Rx .COMPLEX #90 tab sertraline 50 mg tablet 75 mg PO QPM #45 tab 12/19/21 01/02/22 Rx Allergies Allergy/AdvReac Type Severity Reaction Status Date / Time Sulfa (Sulfonamide Allergy Mild RASH Verified 12/26/21 12:56 Antibiotics) [SULFA (SULFONAMIDE ANTIBIOTICS)] Exam Vital Signs (past 8 hours): - 01/02/22 10:55 Temperature 97.7 F Pulse Rate 56 L Respiratory Rate 16 Blood Pressure 125/69 Pulse Oximetry 99 Oxygen Delivery Method Room Air Narrative Exam Narrative: General adult woman alert oriented no acute distress thin Chest nonlabored respirations Abdomen soft nontender Extremities warm well perfused Objective Labs Labs: Laboratory Results - last 24 hr 01/02/22 10:41 SARS-CoV-2 (PCR) Negative Assessment & Plan Assessment and plan (1) Venous insufficiency: Status: Acute Assessment & Plan narrative: 8-year-old woman with metastatic adenocarcinoma here for Port-A-Cath placement. Technical details of the procedure were discussed with the patient. Operative risks including bleeding, infection, mechanical device failure, pneumothorax were discussed. Her questions were answered she is in agreement with this. Time Spent With Patient Critical Care time: I spent a total of [] minutes of critical care time on this patient's care today; this time is exclusive of procedural time.
[2022-01-02] MEDS: ACETAMINOPHEN 325 MG TABLET 650 MG PO (11:18)
[2022-01-02] MEDS: GABAPENTIN 300 MG CAPSULE PO (11:18)
--- NOTE | 2022-01-02 11:20 | PM.OP.1 ---
Operative Date/Time/Diagnoses Date of procedure: 01/02/22 Time of procedure: 11:20 Pre-op diagnosis: Metastatic adenocarcinoma Post-op diagnosis: same Procedure & Clinicians Procedure: Port-A-Cath placement Same procedure as scheduled: Yes Indications: Metastatic adenocarcinoma with plan for chemotherapy Surgeon: Hua Armendariz Click Yes if Unassisted: Yes Anesthesia Type: General Operative Notes Findings: Tip of the catheter within the SVC Estimated Blood Loss (mL): 10 Procedure in detail: Patient was brought to the operating room placed supine on table. Bilateral lower extremity compressive devices were applied. General anesthesia was induced and he was intubated with an LMA. She was then prepped and draped in usual sterile fashion. Time-out was performed ensure the correct patient procedure necessary equipment within the operating room. She received 2 g of Ancef prior to incision. Under ultrasound guidance the right internal jugular vein was accessed under direct visualization. The guidewire was then threaded through the needle. Its placement was then confirmed using fluoroscopy. The dilator was then placed over the guidewire. The catheter was then inserted through the sheath. Placement was again confirmed with fluoroscopy. A subcutaneous pocket was made in the right chest wall. The tunneler device was used to move the catheter from the neck to the chest pocket. The port was attached after it was primed with heparined saline. The port was tested to ensure that it flushed easily and had good blood return. The port was then secured to the underlying fascia using interupted 0 Prolene suture. Hemostasis was achieved. The wound was irrigated with sterile saline. The subcutaneous tissues were reapproximated with the 3 0 Vicryl and then skin closed with 4-0 Monocryl. The skin was sealed with Dermabond. Patient tolerated procedure well. The sponge and instrument count at the end operation was correct. Patient emerged from general anesthesia was extubated and taken to the postoperative care unit in stable condition Complications: none Post-operative Condition: stable Disposition: same day surgery
[2022-01-02] MEDS: CEFAZOLIN 2 GM/20 ML SYRINGE IV (12:13)
--- NOTE | 2022-01-02 12:25 | SUR.OPER ---
Supine on padded OR bed, head on pillow, arms padded and tucked at sides, legs uncrossed, pillow x1 under knees, safety belt at thigh, tape over blanket over lower legs .
[2022-01-02] MEDS: BUPIVACAINE 0.5% (PF) VIAL 10 ML INJ (12:31)
[2022-01-02] MEDS: HEPARIN 5,000 UNIT, SODIUM CHLORIDE 0.9% 50 ML IV (12:32)
--- NOTE | 2022-01-02 12:42 | DI.RAD.S_ITS ---
PROCEDURE: XR CHEST 1V INDICATIONS: PORT-A-CATH TECHNIQUE: One view of the chest was acquired. COMPARISON: [facility], CR, CHEST 2 VIEW, 06/26/2017, 12:23. [facility], CR, XR CHEST 1 VIEW, 05/17/2021, 8:54. FINDINGS: Surgical changes and devices: Right chest wall Port-A-Cath. Lungs and pleura: Atelectasis noted in the lung bases. Parenchymal scarring noted in the left mid lung No pleural effusions or pneumothorax. Mediastinum: Mediastinal contours appear normal. Heart size is normal. Bones and chest wall: No suspicious bony lesions. Overlying soft tissues appear unremarkable. IMPRESSION: Status post placement of right chest wall Port-A-Cath. Dictated by: Taina Bourgeois MD, PhD on 01/02/2022 at 15:33 Approved by: Taina Bourgeois MD, PhD on 01/02/2022 at 15:35
== END 2022-01-02 14:03 | disposition home or self-care (01) ==
PROVIDERS: PCP Family Medicine; Referring Provider Surgery; Visit Provider Surgery
PROC: (CPT 36561; principal; 2022-01-02 11:30)
DX: C80.1 Malignant (primary) neoplasm, unspecified (principal); K21.9 Gastro-esophageal reflux disease without esophagitis; I10 Essential (primary) hypertension; E03.9 Hypothyroidism, unspecified; F17.210 Nicotine dependence, cigarettes, uncomplicated; Z85.038 Personal history of other malignant neoplasm of large intestine; Z20.822 Contact with and (suspected) exposure to COVID-19
CPT/HCPCS: 36561; 71045; 76000; 87635; C1788; J0690; J1100; J1644; J2405; J2704

== ENCOUNTER → 2022-04-20 11:07 | Outpatient (CLI) | payer MEDICARE, SELFPAY ==
[2022-04-20 15:14] LABS: Microalbumin Urine Random 2.2 mg/dL (0-1.6)
[2022-04-20 15:30] LABS: Creatinine Urine Random 99.8 mg/dL
== END ==
PROVIDERS: PCP Family Medicine; Referring Provider Family Medicine; Visit Provider Family Medicine
DX: E11.9 Type 2 diabetes mellitus without complications (principal)
CPT/HCPCS: 36415; 82043; 82570; 83036

== ENCOUNTER → 2022-06-27 12:37 | Outpatient (CLI) | payer MEDICARE, SELFPAY | PROVIDERS: PCP Family Medicine; Visit Provider Physician Assistant Medical | DX: J02.9 Acute pharyngitis, unspecified (principal) | CPT/HCPCS: 87070 ==

== ENCOUNTER → 2023-01-16 11:05 | Outpatient (CLI) | payer MEDICARE, SELFPAY ==
--- NOTE | 2023-01-16 11:06 | DI.US.S_ITS ---
PROCEDURE: US EXTREMITY NONVASC LOWER RT INDICATIONS: RIGHT LOWER LEG NODULE TECHNIQUE: Real-time scanning was performed of the right leg , with image documentation. COMPARISON: None. FINDINGS: Targeted ultrasound of the region of concern demonstrates a hypoechoic, subcutaneous nodule measuring 1.5 x 0.9 centimeter. Negative due T in the superficial femoral vein and popliteal vein. Moderate calcification in the common femoral artery. IMPRESSION: Targeted ultrasound of the region of concern demonstrates a subcutaneous nodule measuring 1.5 x 0.9 centimeters. Differential includes epidermoid inclusion cyst versus partially thrombosed superficial varicosity. Dictated by: Ja Dahl M.D. on 01/16/2023 at 13:15 Approved by: Ja Dahl M.D. on 01/16/2023 at 13:17
== END ==
PROVIDERS: PCP Family Medicine; Referring Provider Family Medicine; Visit Provider Family Medicine
DX: R22.41 Localized swelling, mass and lump, right lower limb (principal)
CPT/HCPCS: 76882

== ENCOUNTER → 2023-02-04 12:04 | Outpatient (CLI) | payer MEDICARE, SELFPAY ==
[2023-02-04 14:09] LABS: Add Manual Diff / Slide Review NO; Basophils Absolute Auto 0 /uL (0-100); Basophils Percent Auto 0.6 % (0-2); Eosinophils Absolute Auto 100 /uL (0-450); Eosinophils Percent Auto 1.4 % (2-4); Hematocrit 37.5 % (36-46); Hemoglobin 12.5 g/dL (12.0-16.0); Lymphocytes Absolute Auto 1200 /uL (1100-4500); Lymphocytes Percent Auto 20.6 % (25-40); Mean Corpuscular HGB Conc 33.4 % (30-36); Mean Corpuscular Hemoglobin 31.5 PG (26-34); Mean Corpuscular Volume 94.4 fL (80-100); Monocytes Absolute Auto 600 /uL (0-900); Monocytes Percent Auto 10.3 % (3-14); Neutrophils Absolute Auto 3800 /uL (1500-7000); Neutrophils Percent Auto 67.1 % (50-75); Platelet Count 278 X10^3/uL (150-400); Red Blood Cell Count 3.97 X10^6/uL (4.0-5.2); Red Cell Distribution Width 15.3 % (11.6-14.8); White Blood Cell Count 5.7 X10^3/uL (4.5-11.0)
[2023-02-04 14:53] LABS: Alanine Aminotransferase 21 IU/L (<35); Albumin 3.7 g/dL (3.5-5.0); Albumin Globulin Ratio 1.1 (1.0-2.8); Alkaline Phosphatase 116 U/L (38-126); Aspartate Aminotransferase 37 IU/L (14-36); BUN Creatinine Ratio 23.5 (6-22); Bilirubin Total 0.3 mg/dL (0.2-1.3); Blood Urea Nitrogen 12 mg/dL (7-17); Carbon Dioxide 27 mmol/L (22-32); Chloride 98 mmol/L (98-107); Cholesterol 195 mg/dL (140-199); Estimated Glomerular Filt Rate > 60 mL/min (>60); Globulin 3.5 g/dL (1.7-4.1); Glucose 83 mg/dL (80-110); HDL Cholesterol 42 mg/dL (40-60); HEMOLYSIS < 15 (0-50); LDL Cholesterol Calculated 134 mg/dL (<100); Sodium 132 mmol/L (137-145); Total Protein 7.2 g/dL (6.3-8.2); Triglycerides 95 mg/dL (35-150)
[2023-02-04 15:24] LABS: Carcinoembryonic Antigen 5.2 ng/mL (0.1-3.0)
== END ==
PROVIDERS: PCP Family Medicine; Referring Provider Family Medicine; Visit Provider Family Medicine
DX: C77.8 Secondary and unspecified malignant neoplasm of lymph nodes of multiple regions (principal); E03.9 Hypothyroidism, unspecified; C78.7 Secondary malignant neoplasm of liver and intrahepatic bile duct; E78.5 Hyperlipidemia, unspecified; I10 Essential (primary) hypertension
CPT/HCPCS: 36415; 80053; 80061; 82378; 84443; 85025